=== PATIENT | female | born 1940 | race Caucasian/White ===

== ENCOUNTER 2018-07-27 11:15 | Emergency (ER) | payer MEDICARE ==
[~2018-07-27] VITALS: Ht 157.5 cm; Wt 86.2 kg
[2018-07-27] MEDS ORDERED: GLIM2TAB (12:21)
[2018-07-27] MEDS ORDERED: NAPR-915 (12:21)
[2018-07-27] MEDS ORDERED: AMLO2.5T4 (12:21)
[2018-07-27] MEDS ORDERED: ASPI-999 PO (12:22)
[2018-07-27 12:31] LABS: BACTERIA,URINE FEW /HPF; BILIRUBIN,URINE NEGATIVE (NEGATIVE); CLARITY,URINE CLOUDY; COLOR,URINE YELLOW; GLUCOSE, URINE (UA) 1+ (NEGATIVE); KETONES,URINE NEGATIVE (NEGATIVE); LEUKOCYTE ESTERASE ,URINE 2+ (NEGATIVE); NITRITE,URINE POSITIVE (NEGATIVE); PH,URINE 5.5 (5-9); PROTEIN,URINE 1+ (NEGATIVE); RBC,URINE 0-2 /HPF; UROBILINOGEN,URINE NORMAL (NORMAL); WBC,URINE TNTC /HPF
--- NOTE | 2018-07-27 12:34 | Diagnostic Imaging Report ---
PROCEDURE: CT sinuses without contrast TECHNIQUE: Multiple contiguous axial images were obtained through the sinuses without the use of intravenous contrast. Coronal and sagittal reformations were then performed. Auto Exposure Controls were utilized during the CT exam to meet ALARA standards for radiation dose reduction. INDICATION: Left-sided facial pain, headache FINDINGS: There is some periorbital and preseptal soft tissue swelling bilaterally. The post-septal space normal. The globes normal. The extraocular muscles normal. Frontal sinuses are aplastic. The ethmoid air cells clear. The maxillary sinuses clear. The sphenoid sinuses clear. The partially visualized mastoid air cells clear. Nasal septum and nasal bones unremarkable. Maxillary sinus ostia are widely patent. IMPRESSION: Clear sinuses however the frontals are aplastic. There is some periorbital soft tissue swelling but no post-septal abnormality. No fracture or acute bony pathology. Dictated by: Dictated on workstation # [id number]
[2018-07-27 13:01] LABS: BASOPHILS # (AUTO) 0.1 10^3/uL (0.0-0.1); BASOPHILS % (AUTO) 1 % (0-10); EOSINOPHILS # (AUTO) 0.3 10^3/uL (0.0-0.3); EOSINOPHILS % (AUTO) 2 % (0-10); HEMATOCRIT 44 % (35-52); HEMOGLOBIN 14.5 G/DL (11.5-16.0); LYMPHOCYTES # (AUTO) 1.2 X 10^3 (1.0-4.0); LYMPHOCYTES % (AUTO) 11 % (12-44); MEAN CORPUSCULAR HEMOGLOBIN 27 PG (25-34); MEAN CORPUSCULAR HGB CONC 33 G/DL (32-36); MEAN CORPUSCULAR VOLUME 82 FL (80-99); MEAN PLATELET VOLUME 10.4 FL (7.4-10.4); MONOCYTES # (AUTO) 0.7 X 10^3 (0.0-1.0); MONOCYTES % (AUTO) 7 % (0-12); NEUTROPHILS # (AUTO) 8.4 X 10^3 (1.8-7.8); NEUTROPHILS % (AUTO) 79 % (42-75); PLATELET COUNT 436 10^3/uL (130-400); RED CELL DISTRIBUTION WIDTH 15.7 % (10.0-14.5); WHITE BLOOD COUNT 10.7 10^3/uL (4.3-11.0)
[2018-07-27 13:19] LABS: ALBUMIN 4.1 GM/DL (3.2-4.5); BILIRUBIN,TOTAL 0.5 MG/DL (0.1-1.0); CALCIUM 10.5 MG/DL (8.5-10.1); CREATININE SERUM 0.99 MG/DL (0.60-1.30); MAGNESIUM 1.8 MG/DL (1.8-2.4); POTASSIUM 4.6 MMOL/L (3.6-5.0); TOTAL PROTEIN 7.5 GM/DL (6.4-8.2)
[2018-07-27] MEDS ORDERED: KETOROLAC 15 MG/ML VIAL IVP ONE (13:30)
[2018-07-27] MEDS ORDERED: DEXAMETHASONE 4 MG/ML SDV (DECADRON) IV ONE (13:30)
[2018-07-27] MEDS ORDERED: cefTRIAXone FOR IV USE 1,000 MG in WATER (STERILE) FOR INJECTION 10 ML IV ONE (13:30)
[2018-07-27] MEDS ORDERED: NITR-65 PO (13:35)
--- NOTE | 2018-07-27 13:36 | ED General ---
General Chief Complaint: General Problems/Pain Stated Complaint: HIGH BP, RT SIDE OF BODY IN PAIN Source of Information: Patient, RN Notes Reviewed Exam Limitations: No Limitations History of Present Illness Date Seen by Provider: Jul 27, 2018 Time Seen by Provider: 12:12 Initial Comments Patient presents c/ c/o left side pain and frequent urination since yesterday. Also concerned about her BP being high. Denies any GI symptoms. Not aware of any fever. Timing/Duration: 1 Day Severity: Moderate (8/10) Modifying Factors: worse with Movement; improves with Rest Associated Systoms: Other ((+) urinary frequency) Allergies and Home Medications Allergies Coded Allergies: lisinopril (Unverified Adverse Reaction, Intermediate, Cough, 07/27/18) Cephalosporins (Unverified Adverse Reaction, Mild, Rash, 07/27/18) codeine (Unverified Adverse Reaction, Mild, N/V, 07/27/18) losartan (Unverified Adverse Reaction, Mild, Cough, 07/27/18) Uncoded Allergies: ATORVASTIN (Adverse Reaction, Intermediate, Muscle pain, 07/27/18) CIPROFLOXIN (Adverse Reaction, Mild, N/V, 07/27/18) SULFA (Adverse Reaction, Mild, Rash, 07/27/18) Home Medications Aspirin 81 Mg Tab.chew, 81 MG PO DAILY, (Reported) Nitrofurantoin Monohyd/M-Cryst 100 Mg Capsule, 1 TAB PO BID Prescribed by: ROSALINO NAVA on 07/27/18 1335 Patient Home Medication List Home Medication List Reviewed: Yes Review of Systems Review of Systems Constitutional: see HPI Genitourinary: see HPI, frequency Musculoskeletal: back pain (left neck and flank) All Other Systems Reviewed Negative Unless Noted: Yes (Negative excepted noted.) Physical Exam Vital Signs Vital Signs - First Documented 07/27/18 11:28 Temp 98.2 Pulse 91 Resp 20 B/P (MAP) 166/106 (126) Pulse Ox 95 O2 Delivery Room Air Capillary Refill : Height, Weight, BMI Height: '" Weight: lbs. oz. kg; BMI Method: General Appearance: No Apparent Distress, WD/WN Respiratory: No Respiratory Distress Gastrointestinal: Soft, Tenderness (suprapubic) Rectal: Deferred Back: CVA Tenderness (L) Neurologic/Psychiatric: Alert, Oriented x3, No Motor/Sensory Deficits, Depressed Affect Skin: Warm/Dry Progress/Results/Core Measures Suspected Sepsis SIRS Temperature: Pulse: Respiratory Rate: Laboratory Tests 07/27/18 12:41: White Blood Count 10.7 Blood Pressure / Mean: Laboratory Tests 07/27/18 12:41: Creatinine 0.99, Platelet Count 436H, Total Bilirubin 0.5 Results/Orders Lab Results Laboratory Tests Test 07/27/18 12:13 07/27/18 12:41 Range/Units Urine Color YELLOW Urine Clarity CLOUDY Urine pH 5.5 5-9 Urine Specific [place] 1.010 L 1.016-1.022 Urine Protein 1+ H NEGATIVE Urine Glucose (UA) 1+ H NEGATIVE Urine Ketones NEGATIVE NEGATIVE Urine Nitrite POSITIVE H NEGATIVE Urine Bilirubin NEGATIVE NEGATIVE Urine Urobilinogen NORMAL NORMAL MG/DL Urine Leukocyte Esterase 2+ H NEGATIVE Urine RBC (Auto) TRACE-I NEGATIVE Urine RBC 0-2 /HPF Urine WBC TNTC H /HPF Urine Crystals NONE /LPF Urine Bacteria FEW H /HPF Urine Casts NONE /LPF Urine Mucus NEGATIVE /LPF Urine Culture Indicated YES White Blood Count 10.7 4.3-11.0 10^3/uL Red Blood Count 5.36 4.35-5.85 10^6/uL Hemoglobin 14.5 11.5-16.0 G/DL Hematocrit 44 35-52 % Mean Corpuscular Volume 82 80-99 FL Mean Corpuscular Hemoglobin 27 25-34 PG Mean Corpuscular Hemoglobin Concent 33 32-36 G/DL Red Cell Distribution Width 15.7 H 10.0-14.5 % Platelet Count 436 H 130-400 10^3/uL Mean Platelet Volume 10.4 7.4-10.4 FL Neutrophils (%) (Auto) 79 H 42-75 % Lymphocytes (%) (Auto) 11 L 12-44 % Monocytes (%) (Auto) 7 0-12 % Eosinophils (%) (Auto) 2 0-10 % Basophils (%) (Auto) 1 0-10 % Neutrophils # (Auto) 8.4 H 1.8-7.8 X 10^3 Lymphocytes # (Auto) 1.2 1.0-4.0 X 10^3 Monocytes # (Auto) 0.7 0.0-1.0 X 10^3 Eosinophils # (Auto) 0.3 0.0-0.3 10^3/uL Basophils # (Auto) 0.1 0.0-0.1 10^3/uL Sodium Level 138 135-145 MMOL/L Potassium Level 4.6 3.6-5.0 MMOL/L Chloride Level 99 98-107 MMOL/L Carbon Dioxide Level 30 21-32 MMOL/L Anion Gap 9 5-14 MMOL/L Blood Urea Nitrogen 17 7-18 MG/DL Creatinine 0.99 0.60-1.30 MG/DL Estimat Glomerular Filtration Rate 55 BUN/Creatinine Ratio 17 Glucose Level 214 H 70-105 MG/DL Calcium Level 10.5 H 8.5-10.1 MG/DL Corrected Calcium 10.4 H 8.5-10.1 MG/DL Magnesium Level 1.8 1.8-2.4 MG/DL Total Bilirubin 0.5 0.1-1.0 MG/DL Aspartate Amino Transf (AST/SGOT) 28 5-34 U/L Alanine Aminotransferase (ALT/SGPT) 27 0-55 U/L Alkaline Phosphatase 95 40-136 U/L Total Protein 7.5 6.4-8.2 GM/DL Albumin 4.1 3.2-4.5 GM/DL My Orders Orders - ROSALINO NAVA DO Cbc With Automated Diff (07/27/18 12:14) Comprehensive Metabolic Panel (07/27/18 12:14) Ua Culture If Indicated (07/27/18 12:14) Magnesium (07/27/18 12:14) Ct Sinus Complete Wo (07/27/18 12:15) Urine Culture (07/27/18 12:13) Dexamethasone Injection (Decadron Inject (07/27/18 13:30) Ketorolac Injection (Toradol Injection) (07/27/18 13:30) Nitrofurantoin Capsule,Macro (Macrobid C (07/27/18 13:45) Ketorolac Injection (Toradol Injection) (07/27/18 13:43) Dexamethasone Injection (Decadron Inject (07/27/18 13:44) Nitrofurantoin Capsule,Macro (Macrobid C (07/27/18 13:43) Medications Given in ED Vital Signs/I&O Capillary Refill : Diagnostic Imaging Diagonstic Imaging: CT Plain Films/CT/US/NM/MRI: other (sinus is unremarkable) Departure Impression Primary Impression: Urinary tract infection Disposition: 01 HOME, SELF-CARE Condition: Stable Departure-Patient Inst. Decision time for Depature: 13:34 Referrals: SELF,SHELLEY FRANCIS (PCP/Family) Primary Care Physician Patient Instructions: Urinary Tract Infection, Adult (DC) Add. Discharge Instructions: All discharge instructions reviewed with patient and/or family. Voiced understanding. BASED ON YOUR LAB WORK TODAY, YOU CAN TAKE NAPROXEN NEEDED FOR YOUR PAIN. Scripts Nitrofurantoin Monohyd/M-Cryst (Macrobid 100 mg Capsule) 100 Mg Capsule 1 TAB PO BID for UTI, #20 CAP 0 Refills Prov: ROSALINO NAVA DO 07/27/18 ROSALINO NAVA DO Jul 27, 2018 13:36
[2018-07-27] MEDS ORDERED: NITROFURANTOIN 100 MG (MACROBID) CAPSULE PO ONE ×2 (13:43→13:45)
[2018-07-27] MEDS ORDERED: KETOROLAC 30 MG/ML VIAL ONE (13:43)
[2018-07-27] MEDS ORDERED: DEXAMETHASONE 10 MG/ML (DECADRON) 1 ML VIAL ONE (13:44)
[2018-07-27 14:00] VITALS: BP 180/87
== END 2018-07-27 14:00 | disposition home or self-care (01) ==
LOC: ER FS 11:18
DX: N39.0 Urinary tract infection, site not specified (principal); Z88.5 Allergy status to narcotic agent; Z88.1 Allergy status to other antibiotic agents; Z88.8 Allergy status to other drugs, medicaments and biological substances; Z88.2 Allergy status to sulfonamides; Z79.82 Long term (current) use of aspirin
CPT/HCPCS: 36415; 70486; 80053; 81000; 83735; 85025; 87088; 87186

== ENCOUNTER → 2018-08-08 | Outpatient (CLI) | payer MEDICARE ==
[~2018-08-08] MED LIST: AMLO2.5T4; ASPI-999 PO; GLIM2TAB; NAPR-915; NITR-65 PO
--- NOTE | 2018-08-08 11:43 | Diagnostic Imaging Report ---
INDICATION: Urinary tract infection, abdominal pain INDICATION: 2 views of the abdomen demonstrate a nondistended bowel gas pattern. There is a round calcification left upper quadrant measuring approximately 10 mm. This is likely related to the splenic artery. Cholecystectomy clips are present. There are phleboliths within the pelvis. There are no obvious renal calculi. Mild to moderate degenerative change seen throughout lumbar spine. IMPRESSION: 1. Nondistended bowel gas pattern. 2. No obvious renal calculi. Dictated by: Dictated on workstation # [id number]
== END ==
LOC: RAD FS 11:05
PROVIDERS: ATTEND Urology
DX: N39.0 Urinary tract infection, site not specified (principal); Z90.49 Acquired absence of other specified parts of digestive tract
CPT/HCPCS: 74018

== ENCOUNTER → 2020-08-17 | Outpatient (CLI) | payer MEDICARE ==
[~2020-08-17] MED LIST changes: -GLIM2TAB; +GLIM2TAB4
--- NOTE | 2020-08-17 13:13 | Diagnostic Imaging Report ---
EXAMINATION: CT head without contrast. TECHNIQUE: Multiple contiguous axial images were obtained through the brain without the use of intravenous contrast. All CT scans use one or more of the following dose optimizing techniques: automated exposure control, MA and/or KvP adjustment based on patient size and exam type or iterative reconstruction. HISTORY: Fall. Vision changes. Scalp contusion. COMPARISON: 07/27/2018. FINDINGS: No large acute territorial ischemia, mass, or hemorrhage. No midline shift or mass effect. Decreased attenuation is seen in the periventricular and subcortical white matter. The ventricles and cortical sulci are prominent. The basilar cisterns are patent and unremarkable. The orbits are normal. Paranasal sinuses are normal. Mastoid air cells are clear. No soft tissue abnormality is seen. No osseus lesions or fractures are seen. IMPRESSION: 1. No large acute territorial ischemia, mass, or hemorrhage. 2. Age-indeterminate microvascular disease. If indicated recommend MRI brain to further evaluate. 3. Generalized parenchymal volume loss. Dictated by: Dictated on workstation # [id number]
== END ==
LOC: RAD FS 12:42
PROVIDERS: ATTEND Family Medicine
DX: S00.03XA Contusion of scalp, initial encounter (principal); G31.9 Degenerative disease of nervous system, unspecified; H53.9 Unspecified visual disturbance; W19.XXXA Unspecified fall, initial encounter
CPT/HCPCS: 70450

== ENCOUNTER 2020-09-16 03:19 | Emergency (ER) | payer MEDICARE ==
[~2020-09-16] VITALS: Ht 157.4 cm; Wt 67.1 kg
--- NOTE | 2020-09-16 03:25 | ED Fall/Injury ---
General Stated Complaint: FALL/BACK PAIN History of Present Illness Date Seen by Provider: Sep 16, 2020 Time Seen by Provider: 03:25 Initial Comments 80-year-old female brought in by EMS following a fall. Patient reports that she fell around 1030 last night. That she crawled into the bedroom to the phone and called 911. She reports that she was unable to get up on her own. However when she was up with EMS assist she ambulated with her walker to the ambulance. She complains of diffuse bilateral lower lumbar pain, no point tenderness. She also reports that the back of her head hurts where she hit her head when she fell. She reports that she been having frequent falls because her knee gives out on her. She has been seeing her primary care provider regarding this. She did not lose consciousness. She denies shortness of breath chest pain or other systemic complaints. Allergies and Home Medications Allergies Coded Allergies: lisinopril (Unverified Adverse Reaction, Intermediate, Cough, 07/27/18) Cephalosporins (Unverified Adverse Reaction, Mild, Rash, 07/27/18) codeine (Unverified Adverse Reaction, Mild, N/V, 07/27/18) losartan (Unverified Adverse Reaction, Mild, Cough, 07/27/18) Uncoded Allergies: ATORVASTIN (Adverse Reaction, Intermediate, Muscle pain, 07/27/18) CIPROFLOXIN (Adverse Reaction, Mild, N/V, 07/27/18) SULFA (Adverse Reaction, Mild, Rash, 07/27/18) Home Medications Aspirin 81 Mg Tab.chew, 81 MG PO DAILY, (Reported) Nitrofurantoin Monohyd/M-Cryst 100 Mg Capsule, 1 TAB PO BID Prescribed by: ROSALINO NAVA on 07/27/18 1335 Patient Home Medication List Home Medication List Reviewed: Yes Review of Systems Review of Systems Constitutional: No chills, No fever Eyes: No Symptoms Reported Ears, Nose, Mouth, Throat: no symptoms reported Respiratory: no symptoms reported Cardiovascular: no symptoms reported Gastrointestinal: no symptoms reported Genitourinary: no symptoms reported Musculoskeletal: see HPI Skin: see HPI Past Bgyjqii-Ktimnm-Iefwuy Hx Past Med/Social Hx: Reviewed Nursing Past Med/Soc Hx Patient Social History Recent Hopitalizations: No Immunizations Up To Date Date of Influenza Vaccine: Dec 30, 2018 Seasonal Allergies Seasonal Allergies: No Past Medical History Gallbladder, Hysterectomy Respiratory: Yes Pulmonary Embolism Cardiac: Yes High Cholesterol, Hypertension, Palpitations Neurological: Yes (NOV 2016: RESIDUAL R SIDE WEAKNESS AND MEMORY ISSUES) Stroke Genitourinary: Yes (ACUTE CYSTITIS HX) UTI-Chronic Gastrointestinal: No Musculoskeletal: Yes (BURSITIS BOTH KNEES) Arthritis Endocrine: Yes (DM TYPE II) Diabetes, Non-Insulin dep HEENT: No Cancer: No Psychosocial: No Integumentary: No Blood Disorders: No Physical Exam Vital Signs Vital Signs - First Documented 09/16/20 03:19 Temp 37.0 Pulse 71 Resp 18 B/P (MAP) 158/94 (115) Pulse Ox 97 O2 Delivery Room Air Capillary Refill : Height, Weight, BMI Height: 5'2.00" Weight: 190lbs. oz. 86.815101su; BMI Method:Stated General Appearance: no apparent distress HEENT: PERRL/EOMI Neck: full range of motion, supple Cardiovascular: normal peripheral pulses Respiratory: lungs clear, normal breath sounds Gastrointestinal: non tender, soft Back: no vertebral tenderness, other (No point tenderness) Extremities: non-tender Neurologic/Psychiatric: alert, normal mood/affect Skin: normal color, warm/dry, other (Small contusion/bump posterior scalp) Progress/Results/Core Measures Results/Orders My Orders Orders - VIVIAN CHUN DO Lumbar Spine 2 Or 3 View (09/16/20 03:25) Ct Head Wo (09/16/20 03:25) Ketorolac Injection (Toradol Injection) (09/16/20 03:54) Vital Signs/I&O 09/16/20 03:19 Temp 37.0 Pulse 71 Resp 18 B/P (MAP) 158/94 (115) Pulse Ox 97 O2 Delivery Room Air Progress Progress Note : Progress Note Patient's head CT shows no acute intercranial abnormality. Patient with no vertebral or point tenderness on exam. No obvious acute fracture lumbar x-ray. Patient stable and discharged home Diagnostic Imaging Diagonstic Imaging: CT Plain Films/CT/US/NM/MRI: head Comments No acute findings, similar to previous CT about a month ago Reviewed: Reviewed [facility] Study Diagonstic Imaging: Xray Plain Films/CT/US/NM/MRI: other (Lumbar spine) Comments No acute fracture noted Departure Impression Primary Impression: Fall Qualified Codes: W19.XXXA - Unspecified fall, initial encounter Additional Impressions: Contusion of scalp Qualified Codes: S00.03XA - Contusion of scalp, initial encounter Lumbar contusion Qualified Codes: S30.0XXA - Contusion of lower back and pelvis, initial encounter Lumbar back sprain Qualified Codes: S33.5XXA - Sprain of ligaments of lumbar spine, initial encounter Disposition: 01 HOME, SELF-CARE Condition: Stable Departure-Patient Inst. Referrals: SELF,SHELLEY FRANCIS (PCP/Family) Primary Care Physician Patient Instructions: Minor Contusion ED, Minor Head Injury, Adult ED Add. Discharge Instructions: Follow-up with your primary care provider for continuation of care and recheck of today's symptoms VIVIAN CHUN DO Sep 16, 2020 03:25
[2020-09-16] MEDS ORDERED: KETOROLAC 30 MG/ML VIAL IM STA (03:54)
[2020-09-16 04:24] VITALS: BP 172/86
--- NOTE | 2020-09-16 05:35 | Diagnostic Imaging Report ---
INDICATION: Fall. Back pain. COMPARISON: None FINDINGS: Frontal and lateral views of the lumbar spine were obtained. Alignment and vertebral heights are maintained. There is no fracture or destructive process. Moderate multilevel degenerative disease is noted in the lumbar spine. Limited views of the abdomen demonstrate nonobstructive bowel gas pattern. IMPRESSION: 1. No acute fracture or dislocation of the lumbar spine. 2. Moderate multilevel degenerative changes. Dictated by: Dictated on workstation # [id number]
--- NOTE | 2020-09-16 06:18 | Diagnostic Imaging Report ---
INDICATION: Fall. Pain in the back of the head. TECHNIQUE: Routine non contrast-enhanced axial images were obtained from the skull base to the vertex. Auto Exposure Controls were utilized during the CT exam to meet ALARA standards for radiation dose reduction COMPARISON: 08/17/2020 FINDINGS: The ventricles and cortical sulci are diffusely prominent, compatible with age-related volume loss. There are confluent areas of abnormal, low attenuation in the periventricular white matter. This is consistent with chronic small vessel ischemic changes. There is no midline shift or mass-effect. No acute intra-axial hemorrhage is seen. There are no abnormal areas of increased or decreased density to suggest acute hemorrhage or edema. No extra-axial masses or collections are present. The bony calvarium is intact. The visualized paranasal sinuses are unremarkable. The mastoid air cells are clear. IMPRESSION: 1. No acute intracranial abnormality. No CT evidence of mass, acute infarct or intracranial hemorrhage. 2. Chronic small vessel ischemic changes in the deep white matter. Dictated by: Dictated on workstation # [id number]
== END 2020-09-16 04:24 | disposition home or self-care (01) ==
LOC: ER FS 03:22
DX: S33.5XXA Sprain of ligaments of lumbar spine, initial encounter (principal); S00.03XA Contusion of scalp, initial encounter; I10 Essential (primary) hypertension; E11.9 Type 2 diabetes mellitus without complications; Z86.73 Personal history of transient ischemic attack (TIA), and cerebral infarction without residual deficits; Z79.82 Long term (current) use of aspirin; W22.8XXA Striking against or struck by other objects, initial encounter
CPT/HCPCS: 70450; 72100

== ENCOUNTER → 2020-12-01 | Outpatient (CLI) | payer MEDICARE ==
--- NOTE | 2020-12-01 16:14 | Diagnostic Imaging Report ---
INDICATION: Primary osteoarthritis of the knees AP, oblique and lateral views of both knees are obtained. No acute fracture or malalignment is identified. There is mild narrowing of the medial knee joint compartments with mild medial marginal spurring, bilaterally. There is also mild suprapatellar spurring which is greater on the right. No definite joint fluid is identified. There are atherosclerotic calcifications. No fracture, malalignment or bone destruction is identified. IMPRESSION: Mild osteoarthritic which is most pronounced in the medial compartments of the knee with mild involvement of the patellofemoral joints, greater on the right. Dictated by: Dictated on workstation # [id number]
== END ==
LOC: RAD 13:53
PROVIDERS: ATTEND Family Medicine
DX: M17.0 Bilateral primary osteoarthritis of knee (principal)

== ENCOUNTER 2022-06-01 14:14 | Observation (INO) | payer MEDICARE ==
[~2022-06-01] VITALS: Ht 157 cm; Wt 60.0 kg
--- NOTE | 2022-06-01 14:36 | ED Chest Pain ---
General Chief Complaint: Chest Pain Stated Complaint: CHEST PAINS Source: patient, EMS Exam Limitations: no limitations (DINO CONNELLY) History of Present Illness Date Seen by Provider: Jun 01, 2022 Time Seen by Provider: 14:33 Initial Comments Patient is a 81-year-old female with a history of stroke, , neuropathy, GERD who presents the ED with chest heaviness and pain. This started around 1 PM. She states she was at lunch eating at [employer]. She started having chest heaviness and went to her room. She started having difficulty breathing. The staff there gave her Tums without much improvement. She states she felt nauseous at the time without vomiting. she states she has had similar pain in the past. She states the pain is 5 out of 10 t this time. She reports mild cough over the past 2 weeks with clear sputum production. She reports intermittent upper abdominal pain for several years. She reports pain in her knees and feet secondary to neuropathy describes as pins and needle sensation. She does use a walker to typically ambulate at home. She denies history of coronary artery disease, CHF, COPD. Denies any fever, chills, bodyaches, headache, dizziness diarrhea, unilateral muscle weakness or sensory changes, dysuria. No known history of hypertension, high cholesterol or smoking. Family cardiac history. Patient was given a full aspirin by EMS. (DINO CONNELLY) Allergies and Home Medications Allergies Coded Allergies: lisinopril (Unverified Adverse Reaction, Intermediate, Cough, 07/27/18) Cephalosporins (Unverified Adverse Reaction, Mild, Rash, 07/27/18) codeine (Unverified Adverse Reaction, Mild, N/V, 07/27/18) losartan (Unverified Adverse Reaction, Mild, Cough, 07/27/18) Uncoded Allergies: ATORVASTIN (Adverse Reaction, Intermediate, Muscle pain, 07/27/18) CIPROFLOXIN (Adverse Reaction, Mild, N/V, 07/27/18) SULFA (Adverse Reaction, Mild, Rash, 07/27/18) Patient Home Medication List Home Medication List Reviewed: Yes (DINO CONNELLY) Acetaminophen (Tylenol) 325 Mg Capsule, 1,000 MG PO DAILY, (Reported) Entered as Reported by: CHAYA RICHARDS on 3/4/717 Last Action: New Order Aspirin (Aspirin) 81 Mg Tab.chew, 81 MG PO DAILY, (Reported) Entered as Reported by: RABIA LIMA on 07/27/18 1222 Last Action: Reviewed Cholecalciferol (Vitamin D3) (Vitamin D3) 50 Mcg (2000 Unit) Tablet, 50 MCG PO D AILJuan, (Reported) Entered as Reported by: CHAYA RICHARDS on 06/02/22717 Last Action: New Order Cyanocobalamin (Vitamin B-12) (Vitamin B12) 2,500 Mcg Tab.chew, 1,000 MCG PO DAILY, (Reported) Entered as Reported by: CHAYA RICHARDS on 06/02/22717 Last Action: New Order Loratadine (Loratadine) 10 Mg Tablet, 10 MG PO DAILY, (Reported) Entered as Reported by: CHAYA RICHARDS on 06/02/22717 Last Action: New Order Houstonia-3 Fatty Acids/Fish Oil (Fish Oil Conc 1,000 mg Softgel) 300 Mg-1,000 Mg Capsule, 1 EACH PO DAILY, (Reported) Entered as Reported by: CHAYA RICHARDS on 06/02/22717 Last Action: New Order Pantoprazole Sodium (Pantoprazole Sodium) 40 Mg Tablet.dr, 40 MG PO DAILY, (Reported) Entered as Reported by: CHAYA RICHARDS on 06/02/22717 Last Action: New Order Psyllium Husk (Metamucil) 3.4 Gram/5.4 Gram Powder, 660 GM PO, (Reported) Entered as Reported by: CHAYA RICHARDS on 06/02/22717 Last Action: New Order Sertraline HCl (Sertraline HCl) 100 Mg Tablet, 100 MG PO DAILY, (Reported) Entered as Reported by: CHAYA RICHARDS on 06/02/22717 Last Action: New Order Trimethoprim (Trimethoprim) 100 Mg Tablet, 100 MG PO DAILY, (Reported) Entered as Reported by: CHAYA RICHARDS on 06/02/22717 Last Action: New Order Discontinued Medications Amlodipine Besylate (Amlodipine Besylate) 2.5 Mg Tablet, (Reported) Discontinued Reason: No Longer Taking Entered as Reported by: RABIA LIMA on 07/27/18 1221 Last Action: Discontinued Review of Systems Review of Systems Constitutional: No chills, No diaphoresis, No malaise, No weakness EENTM: No Blurred Vision, No Eye Pain Respiratory: Cough; Denies Orthopnea; Shortness of Air; Denies SOA at Rest Cardiovascular: Chest Pain Gastrointestinal: Abdominal Pain; Denies Diarrhea; Nausea; Denies Vomiting Musculoskeletal: No back pain, No joint pain, No joint swelling; muscle pain Skin: No change in color, No change in hair/nails Psychiatric/Neurological: Numbness Endocrine: Denies Excessive Sweating, Denies Flushing (DINO CONNELLY) All Other Systems Reviewed Negative Unless Noted: Yes (DINO CONNELLY) Past Ehszrlt-Dfkbzv-Eugugu Hx Seasonal Allergies Seasonal Allergies: No (DINO CONNELLY) Past Medical History Surgeries: Yes Gallbladder, Hysterectomy Respiratory: Yes Pulmonary Embolism Cardiac: Yes High Cholesterol, Hypertension, Palpitations Neurological: Yes (NOV 2016: RESIDUAL R SIDE WEAKNESS AND MEMORY ISSUES) Stroke Genitourinary: Yes (ACUTE CYSTITIS HX) UTI-Chronic Gastrointestinal: No Musculoskeletal: Yes (BURSITIS BOTH KNEES) Arthritis Endocrine: Yes (DM TYPE II) Diabetes, Non-Insulin dep HEENT: No Cancer: No Psychosocial: No Integumentary: No Blood Disorders: No (DINO CONNELLY) Physical Exam Vital Signs Vital Signs - First Documented 06/01/22 14:19 Temp 37.0 Pulse 68 Resp 16 B/P (MAP) 180/69 (106) Pulse Ox 99 (JAY FANG MD) Vital Signs Capillary Refill : (DINO CONNELLY) Height, Weight, BMI Height: 5'2.00" Weight: 190lbs. oz. [id number]; 27.00 BMI Method:Stated General Appearance: No Apparent Distress, WD/WN HEENT: PERRL/EOMI, TMs Normal, Normal ENT Inspection Neck: Full Range of Motion, Normal Inspection, Non Tender, Supple Respiratory: Chest Non Tender, Lungs Clear, Normal Breath Sounds, No Accessory Muscle Use, No Respiratory Distress Cardiovascular: Regular Rate, Rhythm, No Edema, No Gallop, No JVD, No Murmur Gastrointestinal: Normal Bowel Sounds, No Organomegaly, No Pulsatile Mass Extremity: Normal Capillary Refill, Normal Inspection, Normal Range of Motion Neurologic/Psychiatric: Alert, Oriented x3, No Motor/Sensory Deficits, Normal 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, 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 Norm as Tested Skin: Normal Color, Warm/Dry (DINO CONNELLY) Progress/Results/Core Measures Results/Orders Lab Results Laboratory Tests Test 06/01/22 14:26 06/01/22 17:23 Range/Units White Blood Count 4.7 4.3-11.0 10^3/uL Red Blood Count 4.54 3.80-5.11 10^6/uL Hemoglobin 9.5 L 11.5-16.0 g/dL Hematocrit 30 L 35-52 % Mean Corpuscular Volume 65 L 80-99 fL Mean Corpuscular Hemoglobin 21 L 25-34 pg Mean Corpuscular Hemoglobin Concent 32 32-36 g/dL Red Cell Distribution Width 15.8 H 10.0-14.5 % Platelet Count 532 H 130-400 10^3/uL Mean Platelet Volume 9.6 9.0-12.2 fL Immature Granulocyte % (Auto) 0 % Neutrophils (%) (Auto) 65 42-75 % Lymphocytes (%) (Auto) 22 12-44 % Monocytes (%) (Auto) 7 0-12 % Eosinophils (%) (Auto) 4 0-10 % Basophils (%) (Auto) 2 0-10 % Neutrophils # (Auto) 3.1 1.8-7.8 10^3/uL Lymphocytes # (Auto) 1.0 1.0-4.0 10^3/uL Monocytes # (Auto) 0.3 0.0-1.0 10^3/uL Eosinophils # (Auto) 0.2 0.0-0.3 10^3/uL Basophils # (Auto) 0.1 0.0-0.1 10^3/uL Immature Granulocyte # (Auto) 0.0 0.0-0.1 10^3/uL Prothrombin Time 13.5 12.2-14.7 SEC INR Comment 1.0 0.8-1.4 Activated Partial Thromboplast Time 24 24-35 SEC Sodium Level 139 135-145 MMOL/L Potassium Level 4.2 3.6-5.0 MMOL/L Chloride Level 108 H 98-107 MMOL/L Carbon Dioxide Level 22 21-32 MMOL/L Anion Gap 9 5-14 MMOL/L Blood Urea Nitrogen 19 H 7-18 MG/DL Creatinine 1.35 H 0.60-1.30 MG/DL Estimat Glomerular Filtration Rate 40 BUN/Creatinine Ratio 14 Glucose Level 116 H 70-105 MG/DL Calcium Level 10.2 H 8.5-10.1 MG/DL Corrected Calcium 10.3 H 8.5-10.1 MG/DL Magnesium Level 2.1 1.6-2.4 MG/DL Total Bilirubin 0.3 0.1-1.0 MG/DL Aspartate Amino Transf (AST/SGOT) 31 5-34 U/L Alanine Aminotransferase (ALT/SGPT) 14 0-55 U/L Alkaline Phosphatase 80 40-136 U/L Myoglobin 49.0 10.0-92.0 NG/ML Troponin I < 0.028 < 0.028 <0.028 NG/ML B-Type Natriuretic Peptide 265.7 H <100.0 PG/ML Total Protein 6.4 6.4-8.2 GM/DL Albumin 3.9 3.2-4.5 GM/DL Lipase 30 8-78 U/L (JAY FANG MD) My Orders Orders - JAY FANG MD Ekg Tracing (06/01/22 14:20) (JAY FANG MD) Medications Given in ED Current Medications Medications Dose Ordered Sig/Sindhu Route Start Time Stop Time Status Last Admin Dose Admin Enoxaparin Sodium 60 mg ONCE ONCE SC 06/01/22 17:00 06/01/22 17:01 DC 06/01/22 17:04 60 MG Hydralazine HCl 10 mg ONCE ONCE IV 06/01/22 17:00 06/01/22 17:01 DC 06/01/22 17:04 10 MG Metoprolol Tartrate 5 mg ONCE ONCE IV 06/01/22 16:30 06/01/22 16:31 DC 06/01/22 16:45 3 MG Nitroglycerin 0.4 mg UD PRN SL 06/01/22 14:45 06/01/22 14:41 0.4 MG (JAY FANG MD) Vital Signs/I&O 06/01/22 06/01/22 14:19 17:15 Temp 37.0 Pulse 68 76 Resp 16 16 B/P (MAP) 180/69 (106) 179/89 Pulse Ox 99 98 (JAY FANG MD) Comment Sinus rhythm, ventricular premature complexes, 67 bpm, QRS duration 86 MS, QTc 415 MS, Second EKG at 1716 shows sinus rhythm with ventricular bigeminy, pericardial leads low voltage. 82 bpm, QRS duration 86 MS, QTc 475 MS. (DINO CONNELLY) Departure Communication (Admissions) Time/Spoke to Admitting Phy: 16:[address] Jewell. Recommends 5 mg Lopressor, Lovenox, baby aspirin, n.p.o. after midnight, serial troponin (DINO CONNELLY) Communication (PCP) Reviewed outpatient medications, previous ER visits, testing. Does not appear to have any previous cardiac work-up. Patient presents ED with left-sided chest pain after eating. She took Tums at [facility] without much improvement. Associate shortness of breath. On arrival EKG without evidence of ST elevation or depression, A-fib or a flutter. She was given a full aspirin by EMS. Patient on arrival rates pain 5 out of 10. Was given sublingual nitro with improvement of her chest pressure and pain. She was hypertensive and did note some improvements after the sublingual nitro. She started to increase in her blood pressure and was given a dose of Lopressor. After giving about 3 mg of the Lopressor as patient's cardiac rhythm changed and became bradycardic. Lopressor was stopped. Her heart rate did increase but had a rhythm of sinus rhythm with ventricular bigeminy. She did not have any chest pain at this time. She was given hydralazine due to the heart rate in the 60s. Improvement of her blood pressure. Patient was discussed with cardiology Dr. Jewell who recommended Lopressor, Lovenox, baby aspirin and n.p.o. after midnight with serial troponins. This was discussed with the hospitalist Dr. Pratt who accepts patient for cardiac evaluation. Due to her age, moderate heart score patient will be admitted for serial troponins and cardiac work-up. Patient was discussed with OA daughter Kori who agrees. She states that patient has a tendency of seeking attention especially at her facility at [facility]. She does not like sitting at the table and eating at certain times. This was about the time where she started having the chest pain. Due to her complaint, EKG changes, patient will be admitted for further cardiac work-up (DINO CONNELLY) Impression Primary Impression: Chest pain Disposition: ADMITTED INPATIENT Condition: Stable Admissions Decision to Admit Reason: Admit from ER (General) Decision to Admit/Date: Jun 01, 2022 Time/Decision to Admit Time: 16:25 (DINO CONNELLY) Departure-Patient Inst. Referrals: SHELLEY BOURGEOIS MD (PCP/Family) Primary Care Physician ATTENDING PHYSICIAN NOTE: I was physically present as attending physician in the emergency department during the care of this patient, but I was not directly involved in the decision making or delivery of care for this patient. (JAY FANG MD) DINO CONNELLY Jun 01, 2022 14:36 JAY FANG MD Jun 01, 2022 19:55
[2022-06-01 14:38] LABS: BASOPHILS # (AUTO) 0.1 10^3/uL (0.0-0.1); BASOPHILS % (AUTO) 2 % (0-10); EOSINOPHILS # (AUTO) 0.2 10^3/uL (0.0-0.3); EOSINOPHILS % (AUTO) 4 % (0-10); HEMATOCRIT 30 % (35-52); HEMOGLOBIN 9.5 g/dL (11.5-16.0); LYMPHOCYTES % (AUTO) 22 % (12-44); MEAN CORPUSCULAR HEMOGLOBIN 21 pg (25-34); MEAN CORPUSCULAR HGB CONC 32 g/dL (32-36); MEAN CORPUSCULAR VOLUME 65 fL (80-99); MEAN PLATELET VOLUME 9.6 fL (9.0-12.2); MONOCYTES # (AUTO) 0.3 10^3/uL (0.0-1.0); MONOCYTES % (AUTO) 7 % (0-12); NEUTROPHILS # (AUTO) 3.1 10^3/uL (1.8-7.8); NEUTROPHILS % (AUTO) 65 % (42-75); PLATELET COUNT 532 10^3/uL (130-400); WHITE BLOOD COUNT 4.7 10^3/uL (4.3-11.0)
[2022-06-01 14:42] LABS: ALBUMIN 3.9 GM/DL (3.2-4.5); POTASSIUM 4.2 MMOL/L (3.6-5.0)
[2022-06-01 14:44] LABS: CALCIUM 10.2 MG/DL (8.5-10.1)
[2022-06-01 14:45] LABS: TOTAL PROTEIN 6.4 GM/DL (6.4-8.2)
[2022-06-01] MEDS ORDERED: NITROGLYCERIN 0.4 MG SL TABS BTL 25'S SL PRN ×2 (14:45→18:00)
[2022-06-01 14:47] LABS: BILIRUBIN,TOTAL 0.3 MG/DL (0.1-1.0)
[2022-06-01 14:48] LABS: CREATININE SERUM 1.35 MG/DL (0.60-1.30)
[2022-06-01 14:51] LABS: MAGNESIUM 2.1 MG/DL (1.6-2.4)
[2022-06-01 14:52] LABS: PROTHROMBIN TIME PATIENT 13.5 SEC (12.2-14.7)
--- NOTE | 2022-06-01 14:55 | Diagnostic Imaging Report ---
INDICATION: Chest pain. TIME OF EXAM: 2:44 p.m. No prior studies are available for comparison. FINDINGS: The heart size is normal. Lungs are clear. No infiltrates are seen. There is no effusion or pneumothorax. IMPRESSION: No acute cardiopulmonary process is detected. Dictated by: Dictated on workstation # [id number]
[2022-06-01] MEDS ORDERED: NS IV 500 ML 500 ML IV STA (16:02)
[2022-06-01] MEDS ORDERED: NS IV 500 ML 500 ML ONE (16:09)
[2022-06-01] MEDS ORDERED: ENOXAPARIN 60 MG/0.6 ML (LOVENOX) SYR SC ONE ×2 (16:30→17:00)
[2022-06-01] MEDS: meTOprolol 5 MG/5 ML (LOPRESSOR) VIAL IV ONE ×2 (16:38→16:45)
[2022-06-01] MEDS ORDERED: hydrALAZINE (APESOLINE) 20 MG/ML VIAL IV ONE (17:00)
[2022-06-01] MEDS ORDERED: MELATONIN 3 MG TABLET PO PRN (18:00)
[2022-06-01] MEDS ORDERED: MILK OF MAGNESIA 400 MG/5 ML 30 ML UDC PO PRN (18:00)
[2022-06-01] MEDS ORDERED: ONDANSETRON 4 MG (ZOFRAN) ORAL DISSOLVE TAB PO PRN (18:00)
[2022-06-01] MEDS ORDERED: polyethylene glycoL POWDER 17 GM (MIRALAX) PACK PO PRN (18:00)
[2022-06-01] MEDS ORDERED: BISACODYL 10 MG SUPP (DULCOLAX) PR PRN (18:00)
[2022-06-01] MEDS ORDERED: diphenhydrAMINE 50 MG/ML INJ (BENADRYL) IVP PRN (18:00)
[2022-06-01] MEDS ORDERED: ANTACID SUSP 30 ML UDC (MYLANTA) PO PRN (18:00)
[2022-06-01] MEDS ORDERED: ACETAMINOPHEN 325 MG TABLET PO PRN (18:00)
[2022-06-01] MEDS ORDERED: LACTULOSE SYRUP 10GM/15ML (ENULOSE) 30ML UDC PO PRN (18:00)
[2022-06-01] MEDS ORDERED: CALCIUM CARBONATE 500 MG (TUMS) TAB.CHEW PO PRN (18:00)
[2022-06-01] MEDS ORDERED: PATIENT MAY USE OWN MEDS, ALL PO SCH (18:00)
[2022-06-01] MEDS ORDERED: ALPRAZolam 0.5 MG (XANAX) TAB PO PRN (18:00)
[2022-06-01] MEDS ORDERED: ENOXAPARIN 100 MG/1 ML (LOVENOX) SYR SC SCH (18:00)
[2022-06-01] MEDS ORDERED: HYDROmorphone 2 MG/ML VIAL (DILAUDID) IV PRN (18:00)
[2022-06-01] MEDS ORDERED: ONDANSETRON 4 MG/2 ML (SDV) Z0FRAN IV PRN (18:00)
[2022-06-01] MEDS ORDERED: diphenhydrAMINE 25 MG TAB (BENADRYL) PO PRN (18:00)
[2022-06-01] MEDS ORDERED: cloNIDine 0.1 MG (CATAPRES) TAB PO PRN (18:00)
[2022-06-01 18:04] VITALS: BP 168/83
[2022-06-01] MEDS ORDERED: ENOXAPARIN 60 MG/0.6 ML (LOVENOX) SYR SC SCH (18:30)
[2022-06-01 20:00] VITALS: BP 138/78
[2022-06-01] MEDS: meTOprolol TARTRATE 25 MG (LOPRESSOR) TABLET PO SCH (20:14)
[2022-06-01] MEDS: SENNOSIDES 8.6 MG (SENOKOT) TAB PO SCH (20:14)
[2022-06-01] MEDS: DOCUSATE SODIUM 100 MG (COLACE) CAP PO SCH (20:14)
[2022-06-02] VITALS: BP 125/73
[2022-06-02 04:00] VITALS: BP 140/49
[2022-06-02 04:44] LABS: BASOPHILS # (AUTO) 0.1 10^3/uL (0.0-0.1); BASOPHILS % (AUTO) 2 % (0-10); EOSINOPHILS # (AUTO) 0.2 10^3/uL (0.0-0.3); EOSINOPHILS % (AUTO) 5 % (0-10); HEMATOCRIT 26 % (35-52); HEMOGLOBIN 8.3 g/dL (11.5-16.0); LYMPHOCYTES # (AUTO) 1.6 10^3/uL (1.0-4.0); LYMPHOCYTES % (AUTO) 34 % (12-44); MEAN CORPUSCULAR HEMOGLOBIN 21 pg (25-34); MEAN CORPUSCULAR HGB CONC 32 g/dL (32-36); MEAN CORPUSCULAR VOLUME 65 fL (80-99); MEAN PLATELET VOLUME 10.3 fL (9.0-12.2); MONOCYTES # (AUTO) 0.4 10^3/uL (0.0-1.0); MONOCYTES % (AUTO) 9 % (0-12); NEUTROPHILS # (AUTO) 2.5 10^3/uL (1.8-7.8); NEUTROPHILS % (AUTO) 51 % (42-75); PLATELET COUNT 498 10^3/uL (130-400); WHITE BLOOD COUNT 4.8 10^3/uL (4.3-11.0)
[2022-06-02 05:08] LABS: ALANINE AMINOTRANSFERASE 11 U/L (0-55); ALBUMIN 3.4 GM/DL (3.2-4.5); ALKALINE PHOSPHATASE 67 U/L (40-136); BILIRUBIN,TOTAL 0.3 MG/DL (0.1-1.0); BUN/CREATININE RATIO 16; CALCIUM 10.9 MG/DL (8.5-10.1); CARBON DIOXIDE 21 MMOL/L (21-32); CHLORIDE 110 MMOL/L (98-107); CHOLESTEROL 235 MG/DL (< 200); CREATININE SERUM 1.28 MG/DL (0.60-1.30); GFR ESTIMATED 43; GLUCOSE 100 MG/DL (70-105); HDL CHOLESTEROL 48 MG/DL (40-60); POTASSIUM 3.8 MMOL/L (3.6-5.0); SODIUM 140 MMOL/L (135-145); TOTAL PROTEIN 5.9 GM/DL (6.4-8.2); TRIGLYCERIDES 157 MG/DL (<150); VLDL CHOLESTEROL 31 MG/DL (5-40)
[2022-06-02] MEDS ORDERED: ACET325C7 PO (07:18)
[2022-06-02] MEDS ORDERED: PSYL660P17 PO (07:18)
[2022-06-02] MEDS ORDERED: PANT40TA52 PO (07:18)
[2022-06-02] MEDS ORDERED: CHOL200025 PO (07:18)
[2022-06-02] MEDS ORDERED: TRIM100T PO (07:18)
[2022-06-02] MEDS ORDERED: CYAN250014 PO (07:18)
[2022-06-02] MEDS ORDERED: SERT-414 PO (07:18)
[2022-06-02] MEDS ORDERED: OMEG1CAP16 PO (07:18)
[2022-06-02] MEDS ORDERED: LORA10TA7 PO (07:18)
--- NOTE | 2022-06-02 07:31 | Short Stay Summary-Hospitalist ---
History of Present Illness HPI/Chief Complaint CC: Chest pain HPI: This is a 81yoWF clinic patient of [facility] who lives in [place] who presented to the ER with chest pain. Troponin remained normal. Cardiology evaluated her and was found to have no evidence of ACS so she will be DC. Dementia precludes details. Source: patient Exam Limitations: other (dementia) Date Seen 06/02/22 Time Seen by a Provider: 11:00 Attending Physician Kirk Cuellar MD PCP Admitting Physician: Angeles Rand DO Attending Physician: Angeles Rand DO Referring Physician Date of Admission Jun 01, 2022 at 17:25 Home Medications & Allergies Home Medications Reviewed patient Home Medication Reconciliation performed by pharmacy medication reconciliations histotechnician and/or nursing. Patients Allergies have been reviewed. Allergies Allergies Coded Allergies lisinopril (Unverified Adverse Reaction, Intermediate, Cough, 07/27/18) Cephalosporins (Unverified Adverse Reaction, Mild, Rash, 07/27/18) codeine (Unverified Adverse Reaction, Mild, N/V, 07/27/18) losartan (Unverified Adverse Reaction, Mild, Cough, 07/27/18) Uncoded Allergies ATORVASTIN ( Adverse Reaction, Intermediate, Muscle pain, 07/27/18) CIPROFLOXIN ( Adverse Reaction, Mild, N/V, 07/27/18) SULFA ( Adverse Reaction, Mild, Rash, 07/27/18) Past Pewkdmp-Rgpudl-Dxeljs Hx Patient Social History Marrital Status: single Employed/Student: retired Tobacco Use?: No Smoking Status: Former Smoker Smokeless Tobacco Frequency: Never a User Use of E-Cig and/or Vaping dev: No Substance use?: No Alcohol Use?: Yes Alcohol type: Wine Alcohol Frequency: Rarely Pt feels they are or have been: No Immunizations Up To Date Date of Influenza Vaccine: Dec 30, 2021 Seasonal Allergies Seasonal Allergies: No Current Status status: No status: No Advance Directives: Yes Communicates: Verbally Primary Language: Latvian Preferred Spoken Language: Latvian Is interpretation needed?: No Sensory deficits: Vision impairment Implanted or Applied Medical D: None Past Medical History Surgeries: Gallbladder, Hysterectomy Pulmonary Embolism High Cholesterol, Hypertension, Palpitations Stroke UTI-Chronic Arthritis Diabetes, Non-Insulin dep Blood Disorders: No Review of Systems Constitutional: see HPI Physical Exam Physical Exam Vital Signs Vital Signs - First Documented 06/01/22 06/01/22 06/01/22 14:19 18:18 18:20 Temp 37.0 Pulse 68 Resp 16 B/P (MAP) 180/69 (106) Pulse Ox 99 O2 Delivery Room Air FiO2 21 Capillary Refill : Height, Weight, BMI Height: 5'2.00" Weight: 190lbs. oz. 86.129045gu; 24.34 BMI Method:Stated General Appearance: No Apparent Distress, WD/WN HEENT: PERRL/EOMI, TMs Normal, Normal ENT Inspection Neck: Full Range of Motion, Normal Inspection, Non Tender, Supple Respiratory: Chest Non Tender, Lungs Clear, Normal Breath Sounds, No Accessory Muscle Use, No Respiratory Distress Cardiovascular: Regular Rate, Rhythm, No Edema, No Gallop, No JVD, No Murmur Gastrointestinal: Normal Bowel Sounds, No Organomegaly, No Pulsatile Mass Extremity: Normal Capillary Refill, Normal Inspection, Normal Range of Motion Neurologic/Psychiatric: Alert, Oriented x3, No Motor/Sensory Deficits, Normal 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 Short Stay Diagnosis Discharge Diagnosis-Short Stay Admission Diagnosis Chest pain r/o ACS Final Discharge Diagnosis Chest pain w/o evidence of ACS HTN Dementia Conclusion Plan DC home Clinical Quality Measures AMI/AHF: ASA po Prior to arrival: Yes (324 asa per ems) ANGELES RAND DO Jun 02, 2022 07:31
[2022-06-02 07:44] VITALS: BP 145/57
[2022-06-02] MEDS: meTOprolol TARTRATE 25 MG (LOPRESSOR) TABLET PO SCH (07:45)
[2022-06-02] MEDS: SENNOSIDES 8.6 MG (SENOKOT) TAB PO SCH (07:46)
[2022-06-02] MEDS: DOCUSATE SODIUM 100 MG (COLACE) CAP PO SCH (07:46)
--- NOTE | 2022-06-02 08:39 | Physical Therapy Evaluation ---
PT Evaluation-General Medical Diagnosis Admission Date Jun 01, 2022 at 17:25 Medical Diagnosis: chest pain Onset Date: Jun 01, 2022 Therapy Diagnosis Therapy Diagnosis: weakness Height/Weight Height (Feet): 5 Height (Inches): 2.00 Weight (Pounds): 190 Precautions Precautions/Isolations: Fall Prevention, Standard Precautions Referral Physician: Angeles Rand Reason for Referral: Evaluation/Treatment, Strengthening Medical History Pertinent Medical History: Atrial Fib, Arthritis, CVA, DM, GERD Current History Pt began having chest pain and nausea 06/01/22. Admitted for cardiac work up secondary to past history of heart problems and stroke. Social History Home: Assisted Living Current Living Status: Alone Prior Prior Level of Function SCALE: Activities may be completed with or without assistive devices. 7-Ilathnettm-ggtigzi completes the activity by him/herself with no assistance from a helper. 5-Set-up or Clean-up Assistance-helper sets up or cleans up; patient completes activity. [place] assists only prior to or following the activity. 4-Supervision or Touching Assistance-helper provides verbal cues and/or touching/steadying and/or contact guard assistance as patient completes activity. Assistance may be provided throughout the activity or intermittently. 3-Partial/Moderate Assistance-helper does LESS THAN HALF the effort. [place] lifts, holds or supports trunk or limbs, but provides less than half the effort. 2-Substantial/Maximal Assistance-helper does MORE THAN HALF the effort. [place] lifts or holds trunk or limbs and provides more than half the effort. 1-Nfjgovnqr-ffaqzx does ALL the effort. Patient does none of the effort to complete the activity. Or, the assistance of 2 or more helpers is required for the patient to complete the activity. If activity was not attempted, code reason: 7-Patient Refused. 9-Not Applicable-not attempted and the patient did not perform the activity before the current illness, exacerbation or injury. 10-Not Attempted due to Environmental Limitations-(lack of equipment, weather restraints, etc.). 88-Not Attempted due to Medical Conditions or Safety Concerns. Bed Mobility: 6 Transfers (B,C,W/C): 6 Gait: 6 PT Evaluation-Current Subjective Pt reports she is unsteady at time due to arthritis, old stroke, and neuropathy. She does walk to meals at [employer] using a 4 wheel walker. She says she is feeling close to normal at this time with the exception of nausea. Objective Patient Orientation: Normal For Age ROM/Strength Strength Lower Extremities 4/5 Sensory Sensation Lower Extremities altered light touch in both LE below the knee Transfers Roll Left to Right (QC): 6 Sit to Lying (QC): 6 Lying to Sitting/Side of Bed(Q: 6 Sit to Stand (QC): 6 Chair/Wpb-zi-Dofsl Xfer(QC): 4 Able to get herself in and out of bed. She did have some unsteadiness with initial standing and during turns. Provided steadying assist. Gait Distance: 250 Gait Assistive Device: FWW Comments/Gait Description Ambulated 250ft with FWW and CGA for steadying. She had several instances of lateral sway, but no need for physical assist to recover. Balance Sitting Static: Good Sitting Dynamic: Good Standing Static: Fair Standing Dynamic: Fair Assessment/Needs Pt has a history of falls. She demonstrates lateral ataxia and slow gait. She will benefit from PT during her hospital stay to work on balance and strengthening. Rehab Potential: Good PT [facility] Goals [facility] Goals PT It Trainee Goals Time Frame: Jun 06, 2022 Roll Left & Right (QC): 6 Sit to Lying (QC): 6 Lying-Sitting on Side/Bed(QC): 6 Sit to Stand (QC): 6 Chair/Zoa-bg-Qvrwa Xfer(QC): 6 Walk 150 ft (QC): 6 PT Plan Problem List Problem List: Functional Strength, Gait Treatment/Plan Treatment Plan: Continue Plan of Care Treatment Plan: Functional Activity Marie, Functional Strength, Gait, Safety Treatment Duration: Jun 06, 2022 Frequency: 6 times per week Time Time In: 08 Time Out: 0840 DATE: Jun 02, 2022 Total Billed Treatment Time: 20 Total Billed Treatment visit, evaluation low complexity 20 minutes YASMANY REYNOSO PT Jun 02, 2022 08:39
[2022-06-02] MEDS ORDERED: ASPIRIN E.C. 81 MG (ECOTRIN) TAB PO SCH (09:00)
--- NOTE | 2022-06-02 09:37 | Consultation-Cardiology ---
HPI-Cardiology Cardiology Consultation Date of Consultation 06/02/22 Date of Admission Time Seen by Provider: 09:35 Indication: Chest pain HPI 81-year-old lady with history of coronary artery disease, reported that she had a heart attack in the remote past and had a cardiac catheterization done in [place] but not sure what it was done. Started to have chest pain and shortness of breath yesterday and came into the emergency room, currently feeling better, EKG did not show any acute changes, cardiac enzymes were negative. She is currently laying down comfortably in bed. Denied any pedal edema. History of smoking in the remote past Home Medications & Allergies Allergies: Coded Allergies: lisinopril (Unverified Adverse Reaction, Intermediate, Cough, 07/27/18) Cephalosporins (Unverified Adverse Reaction, Mild, Rash, 07/27/18) codeine (Unverified Adverse Reaction, Mild, N/V, 07/27/18) losartan (Unverified Adverse Reaction, Mild, Cough, 07/27/18) Uncoded Allergies: ATORVASTIN (Adverse Reaction, Intermediate, Muscle pain, 07/27/18) CIPROFLOXIN (Adverse Reaction, Mild, N/V, 07/27/18) SULFA (Adverse Reaction, Mild, Rash, 07/27/18) Home Medication List Reviewed: Yes [id number]-Nlyjcf Hx Patient Social History Marital Status: Employed/Student: retired Smoking Status: Former Smoker Recent Hopitalizations: No Have you traveled recently?: Yes Alcohol Use?: Yes Immunizations Up To Date Date of Influenza Vaccine: Dec 30, 2021 Past Medical History Discussed below Family Medical History Significant Family History: No Pertinent Family Hx Review of Systems-General Review of Systems Constitutional: No chills, No diaphoresis, No malaise, No weakness EENTM: see HPI, no symptoms reported Respiratory: see HPI; No cough, No dyspnea on exertion, No hemoptysis, No orthopnea, No phlegm; short of breath; No stridor, No wheezing, No other Cardiovascular: see HPI, chest pain; No edema, No Hx of Intervention, No palpitations, No syncope, No vascular heart diseas, No other Gastrointestinal: no symptoms reported, see HPI Genitourinary: no symptoms reported, see HPI Musculoskeletal: muscle pain Skin: No change in color, No change in hair/nails Psychiatric/Neurological: Numbness All Other Systems Reviewed Negative Unless Noted: Yes Reviewed Test Results Reviewed Test Results Lab Laboratory Tests Test 06/01/22 14:26 06/01/22 17:23 06/02/22 03:53 Range/Units White Blood Count 4.7 4.8 4.3-11.0 10^3/uL Red Blood Count 4.54 4.00 3.80-5.11 10^6/uL Hemoglobin 9.5 L 8.3 L 11.5-16.0 g/dL Hematocrit 30 L 26 L 35-52 % Mean Corpuscular Volume 65 L 65 L 80-99 fL Mean Corpuscular Hemoglobin 21 L 21 L 25-34 pg Mean Corpuscular Hemoglobin Concent 32 32 32-36 g/dL Red Cell Distribution Width 15.8 H 15.7 H 10.0-14.5 % Platelet Count 532 H 498 H 130-400 10^3/uL Mean Platelet Volume 9.6 10.3 9.0-12.2 fL Immature Granulocyte % (Auto) 0 0 % Neutrophils (%) (Auto) 65 51 42-75 % Lymphocytes (%) (Auto) 22 34 12-44 % Monocytes (%) (Auto) 7 9 0-12 % Eosinophils (%) (Auto) 4 5 0-10 % Basophils (%) (Auto) 2 2 0-10 % Neutrophils # (Auto) 3.1 2.5 1.8-7.8 10^3/uL Lymphocytes # (Auto) 1.0 1.6 1.0-4.0 10^3/uL Monocytes # (Auto) 0.3 0.4 0.0-1.0 10^3/uL Eosinophils # (Auto) 0.2 0.2 0.0-0.3 10^3/uL Basophils # (Auto) 0.1 0.1 0.0-0.1 10^3/uL Immature Granulocyte # (Auto) 0.0 0.0 0.0-0.1 10^3/uL Prothrombin Time 13.5 12.2-14.7 SEC INR Comment 1.0 0.8-1.4 Activated Partial Thromboplast Time 24 24-35 SEC Sodium Level 139 140 135-145 MMOL/L Potassium Level 4.2 3.8 3.6-5.0 MMOL/L Chloride Level 108 H 110 H 98-107 MMOL/L Carbon Dioxide Level 22 21 21-32 MMOL/L Anion Gap 9 9 5-14 MMOL/L Blood Urea Nitrogen 19 H 20 H 7-18 MG/DL Creatinine 1.35 H 1.28 0.60-1.30 MG/DL Estimat Glomerular Filtration Rate 40 43 BUN/Creatinine Ratio 14 16 Glucose Level 116 H 100 70-105 MG/DL Calcium Level 10.2 H 10.9 H 8.5-10.1 MG/DL Corrected Calcium 10.3 H 11.4 H 8.5-10.1 MG/DL Magnesium Level 2.1 1.6-2.4 MG/DL Total Bilirubin 0.3 0.3 0.1-1.0 MG/DL Aspartate Amino Transf (AST/SGOT) 31 17 5-34 U/L Alanine Aminotransferase (ALT/SGPT) 14 11 0-55 U/L Alkaline Phosphatase 80 67 40-136 U/L Myoglobin 49.0 10.0-92.0 NG/ML Troponin I < 0.028 < 0.028 < 0.028 <0.028 NG/ML B-Type Natriuretic Peptide 265.7 H <100.0 PG/ML Total Protein 6.4 5.9 L 6.4-8.2 GM/DL Albumin 3.9 3.4 3.2-4.5 GM/DL Lipase 30 8-78 U/L Triglycerides Level 157 H <150 MG/DL Cholesterol Level 235 H < 200 MG/DL LDL Cholesterol Direct 159 H 1-129 MG/DL VLDL Cholesterol 31 5-40 MG/DL HDL Cholesterol 48 40-60 MG/DL Physical Exam Physical Exam Vital Signs Vital Signs - First Documented 06/01/22 06/01/22 06/01/22 14:19 18:18 18:20 Temp 37.0 Pulse 68 Resp 16 B/P (MAP) 180/69 (106) Pulse Ox 99 O2 Delivery Room Air FiO2 21 Capillary Refill : Height, Weight, BMI Height: 5'2.00" Weight: 190lbs. oz. 86.078331xi; 24.34 BMI Method:Stated General Appearance: No Apparent Distress, WD/WN HEENT: PERRL/EOMI, TMs Normal, Normal ENT Inspection Neck: Full Range of Motion, Normal Inspection, Non Tender, Supple Respiratory: Chest Non Tender, Lungs Clear, Normal Breath Sounds, No Accessory Muscle Use, No Respiratory Distress Cardiovascular: Regular Rate, Rhythm, No Edema, No Gallop, No JVD, No Murmur Gastrointestinal: Normal Bowel Sounds, No Organomegaly, No Pulsatile Mass Extremity: Normal Capillary Refill, Normal Inspection, Normal Range of Motion Neurologic/Psychiatric: Alert, Oriented x3, No Motor/Sensory Deficits, Normal 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 No recent cardiac work-up, cardiac enzymes and EKG did not show any acute abnormality Okay for discharge and follow-up as an outpatient Planning to evaluate stress test as an outpatient Hypertension, controlled, continue on current medication History of coronary artery disease, clinically stable at this time History of tobaccoism, has stopped smoking over 15 years ago Dementia Hyperlipidemia, intolerant to statin Clinical Quality Measures AMI/AHF: ASA po Prior to arrival: Yes (324 asa per ems) KENYON FISH MD Jun 02, 2022 09:37
[2022-06-02 11:47] VITALS: BP 140/55
[2022-06-02] MEDS ORDERED: ENOXAPARIN 60 MG/0.6 ML (LOVENOX) SYR SC SCH (17:00)
== END 2022-06-02 12:28 | disposition home or self-care (01) ==
LOC: EDUNIT# 14:14 → ER 14:15 → CSD 17:25
PROVIDERS: ADMIT Internal Medicine; ATTEND Internal Medicine
DX: R07.89 Other chest pain (principal); I25.10 Atherosclerotic heart disease of native coronary artery without angina pectoris; I10 Essential (primary) hypertension; E78.5 Hyperlipidemia, unspecified; F03.90 Unspecified dementia, unspecified severity, without behavioral disturbance, psychotic disturbance, mood disturbance, and anxiety; Z87.891 Personal history of nicotine dependence; Z79.899 Other long term (current) drug therapy
CPT/HCPCS: 71045; 80053 ×2; 80061; 83690; 83735; 83874; 83880; 84484 ×2; 85025 ×2; 85610; 85730; 93041; 99284; C8929; 36415; 93306; 96375

== ENCOUNTER → 2022-08-15 | Outpatient (CLI) | payer MEDICARE ==
[~2022-08-15] MED LIST changes: +ACET325C7 PO; +CATHETER FLUSH 10 ML SYR IVP PRN; +CHOL200025 PO; +CYAN250014 PO; +LORA10TA7 PO; +OMEG1CAP16 PO; +PANT40TA52 PO; +PSYL660P17 PO; +REGADENOSON 0.4 MG/5 ML SYR (LEXISCAN) IV ONE; +SERT-414 PO; +TRIM100T PO
[2022-08-15 13:14] VITALS: BP 218/75
[2022-08-15 13:20] VITALS: BP 209/71
--- NOTE | 2022-08-15 15:11 | Cardiology Stress Test Report ---
Stress Test Report Date of Procedure/Referring: Date of Procedure: August 15, 2022 PCP Kirk Cuellar MD Admitting Physician Admitting Physician: Attending Physician: Suhas Jewell MD Baseline Heart Rate: 74 Baseline Blood Pressure: Blood Pressure Systolic: 209 Blood Pressure Diastolic: 71 Baseline Vitals Vital Signs Date Time Temp Pulse Resp B/P (MAP) Pulse Ox O2 Delivery O2 Flow Rate FiO2 08/15/22 13:14 74 218/75 (122) Baseline EKG: Baseline EKG: NSR Summary After explaining the procedure to the patient, she signed a consent and then brought to the stress nuclear laboratory. Patient received 0.4 mg Lexiscan for stress test, ECG, heart rate and blood pressure were monitored continuously. Resting and stress dose of radio tracer were injected, imaging was acquired and reviewed in short axis, horizontal long axis and vertical long axis views. TID: 0.8 SSS: 4 SDS: 4 EF: 77 Patient tolerated Lexiscan well Increased intestinal uptake affecting the quality of the images, overall no significant ischemia or infarction noted on SPECT images Normal left ventricular size, ejection fraction 77% Copy Copies To 1: KIRK CUELLAR MD, BASHAR J MD August 15, 2022 15:11
== END ==
LOC: CARD 11:16
PROVIDERS: ATTEND Internal Medicine Cardiovascular Disease
DX: I10 Essential (primary) hypertension (principal); I25.10 Atherosclerotic heart disease of native coronary artery without angina pectoris; R07.2 Precordial pain
CPT/HCPCS: 78452; 93017; A9502

== ENCOUNTER 2022-11-30 10:12 | Observation (INO) | payer MEDICARE ==
[~2022-11-30] VITALS: Ht 157.4 cm; Wt 63.8 kg
[2022-11-30] VITALS (10 sets, daily range): BP systolic 121–184; BP diastolic 60–88
[~2022-11-30 10:12] MED LIST changes: -CATHETER FLUSH 10 ML SYR IVP PRN; -REGADENOSON 0.4 MG/5 ML SYR (LEXISCAN) IV ONE
[2022-11-30] MEDS ORDERED: NS IV 500 ML 500 ML IV SCH (10:30)
[2022-11-30] MEDS ORDERED: diphenhydrAMINE 25 MG TABLET PO PRN (10:30)
[2022-11-30] MEDS ORDERED: CALCIUM CARBONATE 500 MG CHEW TABLET PO PRN (10:30)
[2022-11-30] MEDS ORDERED: ANTACID SUSPENSION 30 ML UDC PO PRN (10:30)
[2022-11-30] MEDS ORDERED: LACTULOSE SYRUP 10GM/15ML 30ML UDC PO PRN (10:30)
[2022-11-30] MEDS ORDERED: HYDROmorphone INJECTION 2 MG/ML VIAL IV PRN (10:30)
[2022-11-30] MEDS ORDERED: BISACODYL 10 MG SUPPOSITORY PR PRN (10:30)
[2022-11-30] MEDS ORDERED: MILK OF MAGNESIA 400 MG/5 ML 30 ML UDC PO PRN (10:30)
[2022-11-30] MEDS ORDERED: ACETAMINOPHEN 325 MG TABLET PO PRN (10:30)
[2022-11-30] MEDS ORDERED: ONDANSETRON 4 MG ORAL DISSOLVE TABLET PO PRN (10:30)
[2022-11-30] MEDS ORDERED: ONDANSETRON INJECTION 4 MG/2 ML (SDV) IV PRN (10:30)
[2022-11-30] MEDS ORDERED: diphenhydrAMINE INJ 50 MG/ML VIAL IVP PRN (10:30)
[2022-11-30] MEDS ORDERED: MELATONIN 3 MG TABLET PO PRN (10:30)
--- NOTE | 2022-11-30 10:34 | History & Physical ---
History of Present Illness HPI/Chief Complaint Chief complaint: Symptomatic anemia HPI: This is an 82-year-old female patient at [facility] who presented as a direct admit after labs were found to have a hemoglobin of 6.7 which was new. Patient had been falling and unable to ambulate as well as she usually does. She does have neuropathy. Dementia precludes anything more detailed. No report of bloody stools. She never recalls having a transfusion. Source: patient, RN/MD, old records Exam Limitations: no limitations Date Seen 11/30/22 Time Seen by a Provider: 11:30 Attending Physician Kirk Cuellar MD PCP Admitting Physician: Angeles Rand DO Attending Physician: Angeles Rand DO Referring Physician Date of Admission Home Medications & Allergies Home Medications Reviewed patient Home Medication Reconciliation performed by pharmacy medication reconciliations component technician and/or nursing. Patients Allergies have been reviewed. Allergies Allergies Coded Allergies lisinopril (Unverified Adverse Reaction, Intermediate, Cough, 07/27/18) Cephalosporins (Unverified Adverse Reaction, Mild, Rash, 07/27/18) codeine (Unverified Adverse Reaction, Mild, N/V, 07/27/18) losartan (Unverified Adverse Reaction, Mild, Cough, 07/27/18) Uncoded Allergies ATORVASTIN ( Adverse Reaction, Intermediate, Muscle pain, 07/27/18) CIPROFLOXIN ( Adverse Reaction, Mild, N/V, 07/27/18) SULFA ( Adverse Reaction, Mild, Rash, 07/27/18) Past Yccrgav-Vehwon-Wmttlx Hx Past Med/Social Hx: Reviewed Nursing Past Med/Soc Hx, Reviewed and Corrections made Patient Social History Marrital Status: single Employed/Student: retired Alcohol Use: Denies Use Smoking Status: Unknown if Ever Smoked Recent Hopitalizations: No Immunizations Up To Date Date of Influenza Vaccine: Dec 30, 2021 Seasonal Allergies Seasonal Allergies: No Past Medical History Surgeries: Gallbladder, Hysterectomy Cardiac: High Cholesterol, Hypertension, Palpitations Neurological: Dementia, Stroke Genitourinary: UTI-Chronic Musculoskeletal: Arthritis Endocrine: Diabetes, Non-Insulin dep History of Blood Disorders: No Family History No Pertinent Family Hx Review of Systems Constitutional: see HPI, dizziness, malaise, weakness EENTM: no symptoms reported Respiratory: no symptoms reported Cardiovascular: no symptoms reported Gastrointestinal: no symptoms reported Genitourinary: no symptoms reported Musculoskeletal: no symptoms reported Skin: no symptoms reported Psychiatric/Neurological: No Symptoms Reported All Other Systems Reviewed Negative Unless Noted: Yes Physical Exam Physical Exam Vital Signs Vital Signs - First Documented 11/30/22 10:57 Temp 36.2 Pulse 75 Resp 17 B/P (MAP) 159/73 (101) Pulse Ox 97 O2 Delivery Room Air Capillary Refill : Height, Weight, BMI Height: 5'2.00" Weight: 190lbs. oz. 86.169327qk; 24.34 BMI Method:Stated General Appearance: No Apparent Distress, WD/WN, Chronically ill Eyes: Bilateral Eye Normal Inspection, Bilateral Eye PERRL HEENT: PERRL/EOMI, Normal ENT Inspection, Pharynx Normal Neck: Full Range of Motion, Normal Inspection, Non Tender, Supple, Carotid Bruit Respiratory: Chest Non Tender, Lungs Clear, Normal Breath Sounds, No Accessory Muscle Use, No Respiratory Distress Cardiovascular: Regular Rate, Rhythm, No Edema, No Gallop, No JVD, No Murmur, Normal Peripheral Pulses Gastrointestinal: Normal Bowel Sounds, No Organomegaly, No Pulsatile Mass, Non Tender, Soft Back: Normal Inspection, No CVA Tenderness, No Vertebral Tenderness Extremity: Normal Capillary Refill, Normal Inspection, Normal Range of Motion, Non Tender, No Calf Tenderness, No Pedal Edema Neurologic/Psychiatric: Alert, Oriented x3, No Motor/Sensory Deficits, Normal Mood/Affect, Other (Poor recall) Skin: Normal Color, Warm/Dry Lymphatic: No Adenopathy Results Results/Procedures Labs Laboratory Tests 11/30/22 12:12 11/30/22 12:18 Patient resulted labs reviewed. Assessment/Plan Admission Diagnosis Assessment: Symptomatic anemia due to severe iron deficiency of unknown source of loss Dizziness Recent falls Dementia Hypertension Hyperlipidemia Plan: Transfuse Consult general surgery PPI Iron supplementation B12 supplementation empirically Admission Status: Observation Clinical Quality Measures DVT/VTE Risk/Contraindication: Contraindications-Pharm: Other *list below* Other: anemia ANGELES RAND DO Nov 30, 2022 10:34
--- NOTE | 2022-11-30 11:13 | Consultation - Surgery ---
ULICESRAMINLUCAH 11/30/22 1113: History of Present Illness History of Present Illness Patient Consulted On(taryn/time) 11/30/22 11:06 Date Seen by Provider: Nov 30, 2022 Time Seen by Provider: 11:06 Reason for Visit: Consult from Dr. Rand History of Present Illness Pt admitted for anemia (6.7). jail has been completing labs and sent to hospital after this mornings results. Pt has hx of falls times 1 wk in senior care. Pt denies localized pain. States sometimes legs just get weak and she slid es to ground. Pt daughter present and states that pt is an unreliable historian. Allergies and Home Medications Allergies Coded Allergies: lisinopril (Unverified Adverse Reaction, Intermediate, Cough, 07/27/18) Cephalosporins (Unverified Adverse Reaction, Mild, Rash, 07/27/18) codeine (Unverified Adverse Reaction, Mild, N/V, 07/27/18) losartan (Unverified Adverse Reaction, Mild, Cough, 07/27/18) Uncoded Allergies: ATORVASTIN (Adverse Reaction, Intermediate, Muscle pain, 07/27/18) CIPROFLOXIN (Adverse Reaction, Mild, N/V, 07/27/18) SULFA (Adverse Reaction, Mild, Rash, 07/27/18) Patient Home Medication List Acetaminophen (Acetaminophen) 500 Mg Tablet, 1,000 MG PO DAILY, (Reported) Entered as Reported by: KARTHIK MULLEN on 11/30/221724 Last Action: New Order Acetaminophen (Acetaminophen) 500 Mg Tablet, 500 MG PO HS, (Reported) Entered as Reported by: KARTHIK MULLEN on 11/30/221724 Last Action: New Order Aspirin (Aspirin) 81 Mg Tab.chew, 81 MG PO DAILY, (Reported) Entered as Reported by: RABIA LIMA on 07/27/18 1222 Last Action: Last Taken Edited Cholecalciferol (Vitamin D3) (Vitamin D3) 50 Mcg (2000 Unit) Tablet, 50 MCG PO DAILY, (Reported) Entered as Reported by: CHAYA RICHARDS on 06/02/22 0718 Last Action: Last Taken Edited Cyanocobalamin (Vitamin B-12) (Vitamin B12) 2,500 Mcg Tab.chew, 1,000 MCG PO DAILY, (Reported) Entered as Reported by: CHAYA RICHARDS on 06/02/22717 Last Action: Last Taken Edited Loratadine (Loratadine) 10 Mg Tablet, 10 MG PO DAILY, (Reported) Entered as Reported by: CHAYA RICHARDS on 06/02/22717 Last Action: Last Taken Edited Argyle-3 Fatty Acids/Fish Oil (Fish Oil Conc 1,000 mg Softgel) 300 Mg-1,000 Mg Capsule, 1 EACH PO DAILY, (Reported) Entered as Reported by: CHAYA RICHARDS on 06/02/22717 Last Action: Last Taken Edited Pantoprazole Sodium (Pantoprazole Sodium) 40 Mg Tablet.dr, 40 MG PO DAILY, (Reported) Entered as Reported by: CHAYA RICHARDS on 06/02/22717 Last Action: Last Taken Edited Psyllium Husk (Metamucil) 3.4 Gram/5.4 Gram Powder, 660 GM PO, (Reported) Entered as Reported by: CHAYA RICHARDS on 06/02/22717 Last Action: Last Taken Edited Sertraline HCl (Sertraline HCl) 50 Mg Tablet, 50 MG PO HS, (Reported) Entered as Reported by: KARTHIK MULLEN on 11/30/221724 Last Action: New Order Trimethoprim (Trimethoprim) 100 Mg Tablet, 100 MG PO DAILY, (Reported) Entered as Reported by: CHAYA RICHARDS on 06/02/22717 Last Action: Last Taken Edited Discontinued Medications Acetaminophen (Tylenol) 325 Mg Capsule, 1,000 MG PO DAILY, (Reported) Discontinued Reason: New Order Entered as Reported by: CHAYA RICHARDS on 06/02/22717 Last Action: Discontinued Past Nwcrkxi-Bgjkwn-Ciujup Hx Patient Social History Smoking Status: Never a Smoker Recent Hopitalizations: No Have you traveled recently?: No Immunizations Up To Date Tetanus Booster (TDap): Unknown Date of Influenza Vaccine: Dec 30, 2021 Seasonal Allergies Seasonal Allergies: No Surgeries History of Surgeries: Yes Surgeries: Gallbladder, Hysterectomy Respiratory History of Respiratory Disorde: Yes Respiratory Disorders: Pulmonary Embolism Cardiovascular History of Cardiac Disorders: Yes Cardiac Disorders: High Cholesterol, Hypertension, Palpitations Neurological History of Neurological Disord: Yes (NOV 2022: B/L LE WEAKNESS) Neurological Disorders: Stroke Reproductive System : No 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 Genitourinary History of Genitourinary Disor: Yes (ACUTE CYSTITIS HX) Genitourinary Disorders: UTI-Chronic Gastrointestinal History of Gastrointestinal Di: No Musculoskeletal History of Musculoskeletal Dis: Yes (BURSITIS BOTH KNEES) Musculoskeletal Disorders: Arthritis Endocrine History of Endocrine Disorders: Yes (DM TYPE II) Endocrine Disorders: Diabetes, Non-Insulin dep HEENT History of HEENT Disorders: No Cancer History of Cancer: No Psychosocial History of Psychiatric Problem: No Integumentary History of Skin or Integumenta: No Blood Transfusions History of Blood Disorders: No Family Medical History Significant Family History: No Pertinent Family Hx Review of Systems-General Constitutional: No chills, No fever; weight loss (PT HAS NOT BEEN EATING WELL AFTER 2 YEARS AGO) Respiratory: dyspnea on exertion : No Physical Exam-General Problems Physical Exam Vital Signs Capillary Refill : General Appearance: no apparent distress Respiratory: no accessory muscle use Gastrointestinal: non tender, soft Assessment/Plan Assessment/Plan Assessment/Plan Pending testing ordered. No obvious external bleeding noted on physical exam. Clear fluids. EGD. Clinical Quality Measures DVT/VTE Risk/Contraindication: Contraindications-Pharm: Other *list below* Other: anemia VENKATA SOLARES DO 11/30/222112: History of Present Illness History of Present Illness History of Present Illness Consult from Dr. Rand for anemia. Patient is a 82 year old female who was found to have hgb 6.7 and admitted to hospital Patient poor historian. Not noticed any dark or bloody stools. Has had some falls in senior care. No pain. Denies n/v fever sweats chills shortness of breath or chest pain at this time. Allergies and Home Medications Allergies Coded Allergies: lisinopril (Unverified Adverse Reaction, Intermediate, Cough, 07/27/18) Cephalosporins (Unverified Adverse Reaction, Mild, Rash, 07/27/18) codeine (Unverified Adverse Reaction, Mild, N/V, 07/27/18) losartan (Unverified Adverse Reaction, Mild, Cough, 07/27/18) Uncoded Allergies: ATORVASTIN (Adverse Reaction, Intermediate, Muscle pain, 07/27/18) CIPROFLOXIN (Adverse Reaction, Mild, N/V, 07/27/18) SULFA (Adverse Reaction, Mild, Rash, 07/27/18) Patient Home Medication List Home Medication List Reviewed: Yes Acetaminophen (Acetaminophen) 500 Mg Tablet, 1,000 MG PO DAILY, (Reported) Entered as Reported by: KARTHIK MULLEN on 11/30/221724 Last Action: New Order Acetaminophen (Acetaminophen) 500 Mg Tablet, 500 MG PO HS, (Reported) Entered as Reported by: KARTHIK MULLEN on 11/30/221724 Last Action: New Order Aspirin (Aspirin) 81 Mg Tab.chew, 81 MG PO DAILY, (Reported) Entered as Reported by: RABIA LIMA on 07/27/18 1222 Last Action: Last Taken Edited Cholecalciferol (Vitamin D3) (Vitamin D3) 50 Mcg (2000 Unit) Tablet, 50 MCG PO DAILY, (Reported) Entered as Reported by: CHAYA RICHARDS on 06/02/22717 Last Action: Last Taken Edited Cyanocobalamin (Vitamin B-12) (Vitamin B12) 2,500 Mcg Tab.chew, 1,000 MCG PO DAILY, (Reported) Entered as Reported by: CHAYA RICHARDS on 06/02/22717 Last Action: Last Taken Edited Loratadine (Loratadine) 10 Mg Tablet, 10 MG PO DAILY, (Reported) Entered as Reported by: CHAYA RICHARDS on 06/02/22717 Last Action: Last Taken Edited Argyle-3 Fatty Acids/Fish Oil (Fish Oil Conc 1,000 mg Softgel) 300 Mg-1,000 Mg Capsule, 1 EACH PO DAILY, (Reported) Entered as Reported by: CHAYA RICHARDS on 06/02/22717 Last Action: Last Taken Edited Pantoprazole Sodium (Pantoprazole Sodium) 40 Mg Tablet.dr, 40 MG PO DAILY, ( Reported) Entered as Reported by: CHAYA RICHARDS on 06/02/22717 Last Action: Last Taken Edited Psyllium Husk (Metamucil) 3.4 Gram/5.4 Gram Powder, 660 GM PO, (Reported) Entered as Reported by: CHAYA RICHARDS on 06/02/22717 Last Action: Last Taken Edited Sertraline HCl (Sertraline HCl) 50 Mg Tablet, 50 MG PO HS, (Reported) Entered as Reported by: KARTHIK MULLEN on 11/30/221724 Last Action: New Order Trimethoprim (Trimethoprim) 100 Mg Tablet, 100 MG PO DAILY, (Reported) Entered as Reported by: CHAYA RICHARDS on 06/02/22717 Last Action: Last Taken Edited Discontinued Medications Acetaminophen (Tylenol) 325 Mg Capsule, 1,000 MG PO DAILY, (Reported) Discontinued Reason: New Order Entered as Reported by: CHAYA MAURICE on 06/02/22717 Last Action: Discontinued Review of Systems-General Constitutional: No chills, No fever EENTM: No blurred vision, No double vision Respiratory: dyspnea on exertion Cardiovascular: No chest pain, No palpitations Gastrointestinal: No no symptoms reported, No see HPI Genitourinary: No decreased output, No discharge Musculoskeletal: No back pain, No joint pain Skin: No change in color, No change in hair/nails Psychiatric/Neurological: Denies Anxiety, Denies Depressed, Denies Emotional Problems All Other Systems Reviewed Negative Unless Noted: Yes (Negative excepted noted.) Physical Exam-General Problems Physical Exam General Appearance: no apparent distress, other (elderly) HEENT: PERRL/EOMI, normal ENT inspection Neck: non-tender, supple Respiratory: chest non-tender, no respiratory distress, no accessory muscle use Cardiovascular: regular rate, rhythm, no JVD Gastrointestinal: non tender, soft Rectal: deferred Back: normal inspection, no CVA tenderness Extremities: non-tender, normal inspection Neurologic/Psychiatric: alert, normal mood/affect Skin: warm/dry, pallor Lymphatic: no adenopathy Assessment/Plan Assessment/Plan Assessment/Plan Anemia Gerd Dementia follow hgb and transfuse prbc as needed protonix hold any anticoagulation clear liquids consider endoscopy inpatient vs outpatient Supervisory-Addendum Brief Verification & Attestation Participated in pt care: history, MDM, physical Personally performed: exam, history, MDM, supervision of care Care discussed with: Medical Student Procedures: n/a Results interpretation: Verified all documentation Verification and Attestation of Medical Student E/M Service A medical student performed and documented this service in my presence. I reviewed and verified all information documented by the medical student and made modifications to such information, when appropriate. I personally performed the physical exam and medical decision making. Venkata Solares, Nov 30, 2022,21:16 MAY RANDALL Nov 30, 2022 11:13 VENKATA SOLARES DO Nov 30, 2022 21:13
[2022-11-30 12:27] LABS: ABSOLUTE RETIC # 40 10e9/uL (24-90); BASOPHILS # (AUTO) 0.1 10^3/uL (0.0-0.1); BASOPHILS % (AUTO) 2 % (0-10); EOSINOPHILS # (AUTO) 0.3 10^3/uL (0.0-0.3); EOSINOPHILS % (AUTO) 5 % (0-10); HEMATOCRIT 23 % (35-52); LYMPHOCYTES % (AUTO) 20 % (12-44); MEAN CORPUSCULAR HEMOGLOBIN 18 pg (25-34); MEAN CORPUSCULAR HGB CONC 30 g/dL (32-36); MEAN CORPUSCULAR VOLUME 58 fL (80-99); MEAN PLATELET VOLUME 9.8 fL (9.0-12.2); MONOCYTES # (AUTO) 0.4 10^3/uL (0.0-1.0); MONOCYTES % (AUTO) 8 % (0-12); NEUTROPHILS # (AUTO) 3.3 10^3/uL (1.8-7.8); NEUTROPHILS % (AUTO) 65 % (42-75); PLATELET COUNT 609 10^3/uL (130-400); RETICULOCYTE % 1.01 % (0.50-2.40); WHITE BLOOD COUNT 5.1 10^3/uL (4.3-11.0)
[2022-11-30 12:40] LABS: PROTHROMBIN TIME PATIENT 13.1 SEC (12.2-14.7)
[2022-11-30 12:49] LABS: ALBUMIN 3.7 GM/DL (3.2-4.5); BILIRUBIN,TOTAL 0.4 MG/DL (0.1-1.0); CALCIUM 10.1 MG/DL (8.5-10.1); CREATININE SERUM 1.33 MG/DL (0.60-1.30); POTASSIUM 4.2 MMOL/L (3.6-5.0); TOTAL PROTEIN 5.9 GM/DL (6.4-8.2)
--- NOTE | 2022-11-30 13:22 | Physical Therapy Progress Note ---
Therapy Progress Note Attempted to see patient for PT evaluation. Nurse requested hold as patient is currently receiving blood. Will attempt again tomorrow. PALAK CRUZ PT Nov 30, 2022 13:22
[2022-11-30] MEDS ORDERED: RT-ALBUTEROL SULF 2.5 MG/3 ML PRE-MIX VIAL INH SCH (14:00)
[2022-11-30] MEDS: NS IV 1000 ML 1,000 ML IV SCH (15:09)
[2022-11-30] MEDS: PANTOPRAZOLE INJECTION 40 MG VIAL IV SCH (16:58)
[2022-11-30] MEDS ORDERED: SERT-413 PO (17:25)
[2022-11-30] MEDS ORDERED: ACET-93 PO ×2 (17:25)
[2022-11-30] MEDS ORDERED: amLODIPine 5 MG TABLET PO NR (17:30)
[2022-11-30] MEDS: SENNOSIDES 8.6 MG TABLET PO SCH (20:29)
[2022-11-30] MEDS: DOCUSATE SODIUM 100 MG CAPSULE PO SCH (20:29)
[2022-11-30] MEDS: oxyCODONE IMMEDIATE RELEASE 5 MG TABLET PO PRN (20:33)
[2022-11-30] MEDS: hydrALAZINE INJECTION 20 MG/ML VIAL IV PRN (20:34)
[2022-11-30] MEDS ORDERED: IRON SUCROSE 200 MG/10 ML VIAL IV SCH (21:30)
[2022-11-30] MEDS ORDERED: CYANOCOBALAMIN 1000 MCG/ML 1 ML VIAL IM ONE (21:30)
[2022-11-30] MEDS ORDERED: RT-ALBUTEROL SULF 2.5 MG/3 ML PRE-MIX VIAL INH PRN (21:45)
[2022-12-01 04:59] VITALS: BP 174/75
[2022-12-01] MEDS: NS IV 1000 ML 1,000 ML IV SCH (05:24)
[2022-12-01] MEDS: hydrALAZINE INJECTION 20 MG/ML VIAL IV PRN (05:24)
[2022-12-01] MEDS: oxyCODONE IMMEDIATE RELEASE 5 MG TABLET PO PRN (06:01)
--- NOTE | 2022-12-01 06:06 | Progress Note ---
Subjective Date Seen by a Provider: Dec 01, 2022 Time Seen by a Provider: 09:00 Objective Exam Last Set of Vital Signs Vital Signs Date Time Temp Pulse Resp B/P (MAP) Pulse Ox O2 Delivery O2 Flow Rate FiO2 12/01/22 04:59 36.6 72 18 174/75 (108) 95 Room Air Capillary Refill : I&O Intake and Output 11/30/22 23:59 Intake Total 1480 ml Output Total 601 ml Balance 879 ml Intake Oral 900 ml Other 580 ml Output Urine Total 600 ml Urine/Stool Mix 1 ml # Voids 1 Daily Weight Change No Results Lab Laboratory Tests 11/30/22 12:12: White Blood Count 5.1, Red Blood Count 3.97, Hemoglobin 7.0L, Hematocrit 23L, Mean Corpuscular Volume 58L, Mean Corpuscular Hemoglobin 18L, Mean Corpuscular Hemoglobin Concent 30L, Red Cell Distribution Width 17.9H, Platelet Count 609H, Mean Platelet Volume 9.8, Immature Granulocyte % (Auto) 0, Neutrophils (%) (Auto) 65, Lymphocytes (%) (Auto) 20, Monocytes (%) (Auto) 8, Eosinophils (%) (Auto) 5, Basophils (%) (Auto) 2, Neutrophils # (Auto) 3.3, Lymphocytes # (Auto) 1.0, Monocytes # (Auto) 0.4, Eosinophils # (Auto) 0.3, Basophils # (Auto) 0.1, Immature Granulocyte # (Auto) 0.0, Absolute Reticulocyte Count 40, Percent Reticulocyte Count 1.01 11/30/22 12:18: Prothrombin Time 13.1, INR Comment 1.0, Activated Partial Thromboplast Time 25, Sodium Level 140, Potassium Level 4.2, Chloride Level 108H, Carbon Dioxide Level 23, Anion Gap 9, Blood Urea Nitrogen 16, Creatinine 1.33H, Estimat Glomerular Filtration Rate 40, BUN/Creatinine Ratio 12, Glucose Level 105, Calcium Level 10.1, Corrected Calcium 10.3H, Iron Level 10L, Total Iron Binding Capacity 314, Unsaturated Iron Binding Capacity 304, Transferrin % Saturation 3L, Ferritin 7.4L, Total Bilirubin 0.4, Aspartate Amino Transf (AST/SGOT) 14, Alanine Aminotransferase (ALT/SGPT) 11, Alkaline Phosphatase 59, Total Protein 5.9L, Albumin 3.7, Vitamin B12 Level >2000H Clinical Quality Measures DVT/VTE Risk/Contraindication: Contraindications-Pharm: Other *list below* Other: anemia ETHEL ARANGO DO Dec 01, 2022 06:05
[2022-12-01] MEDS ORDERED: CYANOCOBALAMIN 1,000 MCG TABLET PO SCH (07:00)
--- NOTE | 2022-12-01 07:19 | Progress Note - Surgery ---
MAY RANDALL 12/01/22 0719: Subjective Date Seen by a Provider: Dec 01, 2022 Time Seen by a Provider: 07:14 Subjective/Events-last exam Consult from Dr. Rand. Pt having a hard time mentating. Nausea. No vomiting. Claims diffuse pain on whole body, specifically back pain. States feels worse than yesterday when admitted. Pt poor historian. Review of Systems General: No Night Sweats; Fatigue HEENT: No Head Aches, No Visual Changes Pulmonary: No Dyspnea, No Cough Cardiovascular: No: Palpitations, Edema Gastrointestinal: Nausea; No: Vomiting Genitourinary: No Dysuria, No Frequency Musculoskeletal: other (pt complains of diffuse body pain), back pain Neurological: Confusion; No: Numbness Focused Exam Sepsis Stage: Ruled Out Respiratory: No Accessory Muscle Use; No Respiratory Distress Cardiovascular: Regular Rate, Rhythm, No Edema Capillary Refill: Less Than 3 Seconds Skin: normal color, warm/dry Objective Exam Vital Signs Date Time Temp Pulse Resp B/P (MAP) Pulse Ox O2 Delivery O2 Flow Rate FiO2 12/01/22 04:59 36.6 72 18 174/75 (108) 95 Room Air 12/01/22 01:00 80 11/30/22 23:10 36.5 78 20 121/71 (88) 96 Room Air 11/30/22 20:29 Room Air 11/30/22 20:27 36.9 71 18 165/75 (105) 98 Room Air 11/30/22 19:00 80 11/30/22 18:17 179/65 (103) 11/30/22 16:48 37.0 76 18 184/88 99 Room Air 11/30/22 16:19 37.0 72 16 170/74 (106) 98 Room Air 11/30/22 13:41 36.1 78 18 184/81 99 Room Air 11/30/22 13:27 36.6 86 18 167/60 99 Room Air 11/30/22 12:50 36.3 73 17 174/65 (101) 100 Room Air 11/30/22 12:40 36.2 74 97 11/30/22 12:20 74 11/30/22 11:26 Room Air 11/30/22 10:57 36.2 75 17 159/73 (101) 97 Room Air I & O 12/01/22 07:00 Intake Total 2705 ml Output Total 1501 ml Balance 1204 ml Capillary Refill : General Appearance: No Apparent Distress, WD/WN, Chronically ill HEENT: PERRL/EOMI, Normal ENT Inspection, Pharynx Normal Neck: Full Range of Motion, Normal Inspection, Non Tender, Supple, Carotid Bruit Respiratory: No Accessory Muscle Use, No Respiratory Distress Cardiovascular: Regular Rate, Rhythm, No Edema, Normal Peripheral Pulses Gastrointestinal: non tender, soft Extremity: Normal Inspection, Normal Range of Motion, No Pedal Edema Neurologic/Psychiatric: Disoriented, Other (Poor recall) Skin: Normal Color, Warm/Dry Lymphatic: No Adenopathy Results Lab Laboratory Tests 11/30/22 12:12: White Blood Count 5.1, Red Blood Count 3.97, Hemoglobin 7.0L, Hematocrit 23L, Mean Corpuscular Volume 58L, Mean Corpuscular Hemoglobin 18L, Mean Corpuscular Hemoglobin Concent 30L, Red Cell Distribution Width 17.9H, Platelet Count 609H, Mean Platelet Volume 9.8, Immature Granulocyte % (Auto) 0, Neutrophils (%) (Auto) 65, Lymphocytes (%) (Auto) 20, Monocytes (%) (Auto) 8, Eosinophils (%) (Auto) 5, Basophils (%) (Auto) 2, Neutrophils # (Auto) 3.3, Lymphocytes # (Auto) 1.0, Monocytes # (Auto) 0.4, Eosinophils # (Auto) 0.3, Basophils # (Auto) 0.1, Immature Granulocyte # (Auto) 0.0, Absolute Reticulocyte Count 40, Percent Reticulocyte Count 1.01 11/30/22 12:18: Prothrombin Time 13.1, INR Comment 1.0, Activated Partial Thromboplast Time 25, Sodium Level 140, Potassium Level 4.2, Chloride Level 108H, Carbon Dioxide Level 23, Anion Gap 9, Blood Urea Nitrogen 16, Creatinine 1.33H, Estimat Glomerular Filtration Rate 40, BUN/Creatinine Ratio 12, Glucose Level 105, Calcium Level 10.1, Corrected Calcium 10.3H, Iron Level 10L, Total Iron Binding Capacity 314, Unsaturated Iron Binding Capacity 304, Transferrin % Saturation 3L, Ferritin 7.4L, Total Bilirubin 0.4, Aspartate Amino Transf (AST/SGOT) 14, Alanine Aminotransferase (ALT/SGPT) 11, Alkaline Phosphatase 59, Total Protein 5.9L, Albumin 3.7, Vitamin B12 Level >2000H Assessment/Plan Assessment/Plan Assessment/Plan Anemia: 1 unit pbr transfused 11/30/22 Gerd Dementia follow hgb and transfuse prbc as needed protonix hold any anticoagulation clear liquids consider endoscopy inpatient vs outpatient Clinical Quality Measures DVT/VTE Risk/Contraindication: Contraindications-Pharm: Other *list below* Other: anemia RAY HAQ DO 12/01/22 1134: Subjective Subjective/Events-last exam Pleasant this morning. Overall achy. Hgb improved. Denies n/v fever sweats chills shortness of breath or chest pain at this time. Objective Exam General Appearance: No Apparent Distress, Chronically ill HEENT: PERRL/EOMI, Normal ENT Inspection Neck: Normal Inspection, Supple Respiratory: Chest Non Tender, No Accessory Muscle Use, No Respiratory Distress Cardiovascular: Regular Rate, Rhythm, No JVD Gastrointestinal: non tender, soft Extremity: Normal Inspection, Normal Range of Motion Neurologic/Psychiatric: Alert, Disoriented, Other (Poor recall) Skin: Normal Color, Warm/Dry Lymphatic: No Adenopathy Assessment/Plan Assessment/Plan Assessment/Plan Anemia Gerd Dementia follow hgb and transfuse prbc as needed protonix hold any anticoagulation clear liquids can advance endoscopy can be discussed as outpatient Supervisory-Addendum Brief Verification & Attestation Participated in pt care: history, MDM, physical Personally performed: exam, history, MDM, supervision of care Care discussed with: Medical Student Procedures: n/a Results interpretation: Verified all documentation Verification and Attestation of Medical Student E/M Service A medical student performed and documented this service in my presence. I reviewed and verified all information documented by the medical student and made modifications to such information, when appropriate. I personally performed the physical exam and medical decision making. Ray Haq Dec 01, 2022,11:33 MAY RANDALL Dec 01, 2022 07:19 RAY HAQ DO Dec 01, 2022 11:34
[2022-12-01 07:43] VITALS: BP 127/65
[2022-12-01] MEDS: PANTOPRAZOLE INJECTION 40 MG VIAL IV SCH (08:23)
[2022-12-01] MEDS: DOCUSATE SODIUM 100 MG CAPSULE PO SCH (08:23)
[2022-12-01] MEDS: SENNOSIDES 8.6 MG TABLET PO SCH (08:23)
[2022-12-01] MEDS ORDERED: amLODIPine 5 MG TABLET PO SCH (09:00)
[2022-12-01] MEDS ORDERED: IRON SUCROSE 200 MG/10 ML VIAL IV ONE (10:00)
[2022-12-01] MEDS ORDERED: AMLO-250 PO (10:06)
[2022-12-01] MEDS ORDERED: PANT40TA2 PO (10:06)
[2022-12-01] MEDS ORDERED: IRON150C3 PO (10:06)
--- NOTE | 2022-12-01 10:08 | Discharge Summary ---
Diagnosis/Chief Complaint Date of Admission Nov 30, 2022 at 10:51 Date of Discharge Discharge Date: Dec 01, 2022 Discharge Diagnosis Assessment: Symptomatic anemia due to severe iron deficiency of unknown source of loss Dizziness Recent falls Dementia Hypertension Hyperlipidemia Plan: Transfuse Consult general surgery PPI Iron supplementation B12 supplementation empirically Discharge Summary Discharge Physical Examination Allergies: Coded Allergies: lisinopril (Unverified Adverse Reaction, Intermediate, Cough, 07/27/18) Cephalosporins (Unverified Adverse Reaction, Mild, Rash, 07/27/18) codeine (Unverified Adverse Reaction, Mild, N/V, 07/27/18) losartan (Unverified Adverse Reaction, Mild, Cough, 07/27/18) Uncoded Allergies: ATORVASTIN (Adverse Reaction, Intermediate, Muscle pain, 07/27/18) CIPROFLOXIN (Adverse Reaction, Mild, N/V, 07/27/18) SULFA (Adverse Reaction, Mild, Rash, 07/27/18) Vitals & I&Os Vital Signs Date Time Temp Pulse Resp B/P (MAP) Pulse Ox O2 Delivery O2 Flow Rate FiO2 12/01/22 12:50 36.8 91 14 171/70 96 Room Air General Appearance: Alert, Oriented X3, Cooperative Respiratory: Clear to Auscultation Cardiovascular: Regular Rate Psych/Mental Status: Mental Status NL Hospital Course Was the Problem List Reviewed?: Yes Short hospital course after she was admitted for symptomatic anemia hemoglobin 6.7. Patient was given 1 unit of blood and iron infusions which helped tremendously. General surgery will perform EGD and colonoscopy as an outpatient to identify source of chronic blood loss. PPI was changed to twice daily blood pressure medications initiated and patient was deemed stable for discharge. Labs (last 24 hrs) Laboratory Tests 11/30/22 12:12: White Blood Count 5.1, Red Blood Count 3.97, Hemoglobin 7.0L, Hematocrit 23L, Mean Corpuscular Volume 58L, Mean Corpuscular Hemoglobin 18L, Mean Corpuscular Hemoglobin Concent 30L, Red Cell Distribution Width 17.9H, Platelet Count 609H, Mean Platelet Volume 9.8, Immature Granulocyte % (Auto) 0, Neutrophils (%) (Auto) 65, Lymphocytes (%) (Auto) 20, Monocytes (%) (Auto) 8, Eosinophils (%) (Auto) 5, Basophils (%) (Auto) 2, Neutrophils # (Auto) 3.3, Lymphocytes # (Auto) 1.0, Monocytes # (Auto) 0.4, Eosinophils # (Auto) 0.3, Basophils # (Auto) 0.1, Immature Granulocyte # (Auto) 0.0, Absolute Reticulocyte Count 40, Percent Reticulocyte Count 1.01 11/30/22 12:18: Prothrombin Time 13.1, INR Comment 1.0, Activated Partial Thromboplast Time 25, Sodium Level 140, Potassium Level 4.2, Chloride Level 108H, Carbon Dioxide Level 23, Anion Gap 9, Blood Urea Nitrogen 16, Creatinine 1.33H, Estimat Glomerular Filtration Rate 40, BUN/Creatinine Ratio 12, Glucose Level 105, Calcium Level 10.1, Corrected Calcium 10.3H, Iron Level 10L, Total Iron Binding Capacity 314, Unsaturated Iron Binding Capacity 304, Transferrin % Saturation 3L, Ferritin 7.4L, Total Bilirubin 0.4, Aspartate Amino Transf (AST/SGOT) 14, Alanine [place] otransferase (ALT/SGPT) 11, Alkaline Phosphatase 59, Total Protein 5.9L, Albumin 3.7, Vitamin B12 Level >2000H 12/01/22 10:00: White Blood Count 7.5, Red Blood Count 4.40, Hemoglobin 8.4L, Hematocrit 27L, Mean Corpuscular Volume 62L, Mean Corpuscular Hemoglobin 19L, Mean Corpuscular Hemoglobin Concent 31L, Red Cell Distribution Width 21.2H, Platelet Count 551H, Mean Platelet Volume 9.4, Immature Granulocyte % (Auto) 0, Neutrophils (%) (A uto) 77H, Lymphocytes (%) (Auto) 11L, Monocytes (%) (Auto) 7, Eosinophils (%) (Auto) 4, Basophils (%) (Auto) 2, Neutrophils # (Auto) 5.8, Lymphocytes # (Auto) 0.8L, Monocytes # (Auto) 0.5, Eosinophils # (Auto) 0.3, Basophils # (Auto) 0.1, Immature Granulocyte # (Auto) 0.0, Sodium Level 139, Potassium Level 3.7, Chloride Level 108H, Carbon Dioxide Level 20L, Anion Gap 11, Blood Urea Nitrogen 13, Creatinine 1.15, Estimat Glomerular Filtration Rate 48, BUN/Creatinine Ratio 11, Glucose Level 130H, Calcium Level 9.6, Corrected Calcium 10.0, Total Bilirubin 0.5, Aspartate Amino Transf (AST/SGOT) 15, Alanine Aminotransferase (ALT/SGPT) 8, Alkaline Phosphatase 56, Total Protein 5.7L, Albumin 3.5 Pending Labs Laboratory Tests 11/30/22 12:12: White Blood Count 5.1, Red Blood Count 3.97, Hemoglobin 7.0, Hematocrit 23, Mean Corpuscular Volume 58, Mean Corpuscular Hemoglobin 18, Mean Corpuscular Hemoglobin Concent 30, Red Cell Distribution Width 17.9, Platelet Count 609, [place] Platelet Volume 9.8, Immature Granulocyte % (Auto) 0, Neutrophils (%) (Auto) 65, Lymphocytes (%) (Auto) 20, Monocytes (%) (Auto) 8, Eosinophils (%) (Auto) 5, Basophils (%) (Auto) 2, Neutrophils # (Auto) 3.3, Lymphocytes # (Auto) 1.0, Monocytes # (Auto) 0.4, Eosinophils # (Auto) 0.3, Basophils # (Auto) 0.1, Immature Granulocyte # (Auto) 0.0, Absolute Reticulocyte Count 40, Percent Reticulocyte Count 1.01 11/30/22 12:18: Prothrombin Time 13.1, INR Comment 1.0, Activated Partial Thromboplast Time 25, Sodium Level 140, Potassium Level 4.2, Chloride Level 108, Carbon Dioxide Level 23, Anion Gap 9, Blood Urea Nitrogen 16, Creatinine 1.33, Estimat Glomerular Filtration Rate 40, BUN/Creatinine Ratio 12, Glucose Level 105, Calcium Level 10.1, Corrected Calcium 10.3, Iron Level 10, Total Iron Binding Capacity 314, Unsaturated Iron Binding Capacity 304, Transferrin % Saturation 3, Ferritin 7.4, Total Bilirubin 0.4, Aspartate Amino Transf (AST/SGOT) 14, Alanine Aminotransferase (ALT/SGPT) 11, Alkaline Phosphatase 59, Total Protein 5.9, Albumin 3.7, Vitamin B12 Level >2000 12/01/22 10:00: White Blood Count 7.5, Red Blood Count 4.40, Hemoglobin 8.4, Hematocrit 27, Mean Corpuscular Volume 62, Mean Corpuscular Hemoglobin 19, Mean Corpuscular Hemoglobin Concent 31, Red Cell Distribution Width 21.2, Platelet Count 551, Mean Platelet Volume 9.4, Immature Granulocyte % (Auto) 0, Neutrophils (%) (Auto) 77, Lymphocytes (%) (Auto) 11, Monocytes (%) (Auto) 7, Eosinophils (%) (Auto) 4, Basophils (%) (Auto) 2, Neutrophils # (Auto) 5.8, Lymphocytes # (Auto) 0.8, Monocytes # (Auto) 0.5, Eosinophils # (Auto) 0.3, Basophils # (Auto) 0.1, Immature Granulocyte # (Auto) 0.0, Sodium Level 139, Potassium Level 3.7, Chloride Level 108, Carbon Dioxide Level 20, Anion Gap 11, Blood Urea Nitrogen 13, Creatinine 1.15, Estimat Glomerular Filtration Rate 48, BUN/Creatinine Ratio 11, Glucose Level 130, Calcium Level 9.6, Corrected Calcium 10.0, Total Bilirubin 0.5, Aspartate Amino Transf (AST/SGOT) 15, Alanine Aminotransferase (ALT/SGPT) 8, Alkaline Phosphatase 56, Total Protein 5.7, Albumin 3.5 Discharge Home Medications: Active Scripts Active Ferrex 150 (Iron Polysaccharide Complex) 150 Mg Iron Capsule 150 Mg PO Q48H Protonix (Pantoprazole Sodium) 40 Mg Tablet.dr 40 Mg PO BID Amlodipine Besylate 5 Mg Tablet 5 Mg PO DAILY Reported Sertraline HCl 50 Mg Tablet 50 Mg PO HS Acetaminophen 500 Mg Tablet 500 Mg PO HS Acetaminophen 500 Mg Tablet 1,000 Mg PO DAILY 30 Days Metamucil (Psyllium Husk) 3.4 Gram/5.4 Gram Powder 660 Gm PO Loratadine 10 Mg Tablet 10 Mg PO DAILY Vitamin B12 (Cyanocobalamin (Vitamin B-12)) 2,500 Mcg Tab.chew 1,000 Mcg PO DAILY Vitamin D3 (Cholecalciferol (Vitamin D3)) 50 Mcg (2000 Unit) Tablet 50 Mcg PO DAILY Fish Oil Conc 1,000 mg Softgel ([place]-3 Fatty Acids/Fish Oil) 300 Mg-1,000 Mg Capsule 1 Each PO DAILY Trimethoprim 100 Mg Tablet 100 Mg PO DAILY Instructions to patient/family Please see electronic discharge instructions given to patient. Clinical Quality Measures DVT/VTE Risk/Contraindication: Contraindications-Pharm: Other *list below* Other: anemia ETHEL ARANGO DO Dec 01, 2022 10:08
[2022-12-01 10:10] LABS: BASOPHILS # (AUTO) 0.1 10^3/uL (0.0-0.1); BASOPHILS % (AUTO) 2 % (0-10); EOSINOPHILS # (AUTO) 0.3 10^3/uL (0.0-0.3); EOSINOPHILS % (AUTO) 4 % (0-10); HEMATOCRIT 27 % (35-52); HEMOGLOBIN 8.4 g/dL (11.5-16.0); LYMPHOCYTES # (AUTO) 0.8 10^3/uL (1.0-4.0); LYMPHOCYTES % (AUTO) 11 % (12-44); MEAN CORPUSCULAR HEMOGLOBIN 19 pg (25-34); MEAN CORPUSCULAR HGB CONC 31 g/dL (32-36); MEAN CORPUSCULAR VOLUME 62 fL (80-99); MEAN PLATELET VOLUME 9.4 fL (9.0-12.2); MONOCYTES # (AUTO) 0.5 10^3/uL (0.0-1.0); MONOCYTES % (AUTO) 7 % (0-12); NEUTROPHILS # (AUTO) 5.8 10^3/uL (1.8-7.8); NEUTROPHILS % (AUTO) 77 % (42-75); PLATELET COUNT 551 10^3/uL (130-400); WHITE BLOOD COUNT 7.5 10^3/uL (4.3-11.0)
[2022-12-01 10:32] LABS: ALBUMIN 3.5 GM/DL (3.2-4.5); BILIRUBIN,TOTAL 0.5 MG/DL (0.1-1.0); CALCIUM 9.6 MG/DL (8.5-10.1); CREATININE SERUM 1.15 MG/DL (0.60-1.30); POTASSIUM 3.7 MMOL/L (3.6-5.0); TOTAL PROTEIN 5.7 GM/DL (6.4-8.2)
[2022-12-01 11:42] VITALS: BP 171/70
--- NOTE | 2022-12-01 11:52 | Physical Therapy Evaluation ---
PT Evaluation-General Medical Diagnosis Admission Date Nov 30, 2022 at 10:51 Medical Diagnosis: anemia Onset Date: Nov 30, 2022 Therapy Diagnosis Therapy Diagnosis: limited mobility Height/Weight Height (Feet): 5 Height (Inches): 2.00 Weight (Pounds): 190 Precautions Precautions/Isolations: Fall Prevention, Standard Precautions Weight Bear Status Full Weight Bearing Full Weight Bearing Referral Physician: Angeles Rand DO Reason for Referral: Evaluation/Treatment Medical History Pertinent Medical History: Atrial Fib, Arthritis, CVA, DM, GERD Current History Admit from [facility] due to falls and anemia. Reviewed History: Yes Social History Home: Assisted Living Prior Prior Level of Function SCALE: Activities may be completed with or without assistive devices. 9-Dlszfkrfpx-yuyvthg completes the activity by him/herself with no assistance from a helper. 5-Set-up or Clean-up Assistance-helper sets up or cleans up; patient completes activity. [place] assists only prior to or following the activity. 4-Supervision or Touching Assistance-helper provides verbal cues and/or touching/steadying and/or contact guard assistance as patient completes activity. Assistance may be provided throughout the activity or intermittently. 3-Partial/Moderate Assistance-helper does LESS THAN HALF the effort. [place] lifts, holds or supports trunk or limbs, but provides less than half the effort. 2-Substantial/Maximal Assistance-helper does MORE THAN HALF the effort. [place] lifts or holds trunk or limbs and provides more than half the effort. 5-Moarhsjbi-synnge does ALL the effort. Patient does none of the effort to complete the activity. Or, the assistance of 2 or more helpers is required for the patient to complete the activity. If activity was not attempted, code reason: 7-Patient Refused. 9-Not Applicable-not attempted and the patient did not perform the activity before the current illness, exacerbation or injury. 10-Not Attempted due to Environmental Limitations-(lack of equipment, weather restraints, etc.). 88-Not Attempted due to Medical Conditions or Safety Concerns. Bed Mobility: 4 Transfers (B,C,W/C): 4 Gait: 4 Stairs: 9 Indoor Mobility (Ambulation): Needed Some Help Stairs: Not Applicalbe Prior Devices Use: Walker Prior Device Use: walker in facility Pt reported limited ambulation within the [facility]. PT Evaluation-Current Subjective Pt is alert but mildly confused. Pain Numeric Pain Scale: 0-No Pain Pt/Family Goals return to [facility] Objective Patient Orientation: Person, Place, Time, Situation ROM/Strength ROM Upper Extremities WFL ROM Lower Extremities WFL Strength Upper Extremities WFL Strength Lower Extremities WFL Neuromuscular (Tone, Coordination, Reflexes) intact Sensory Vision: Wears Glasses Hearing: Functional Hand Dominance: Left Sensation Right Upper Extremit: Intact Sensation Left Upper Extremity: Intact Sensation Right Lower Extremit: Intact Sensation Left Lower Extremity: Intact Transfers Roll Left to Right (QC): 3 Sit to Lying (QC): 3 Lying to Sitting/Side of Bed(Q: 3 Sit to Stand (QC): 3 Chair/Wus-al-Iweue Xfer(QC): 3 Gait Does the Patient Walk?: Yes Mode of Locomotion: Walk Anticipated Mode of Locomotion: Walk Walk 10 feet (QC): 4 Walk 50 ft with 2 Turns(QC): 88 Walk 150 ft (QC): 88 Walking 10ft/uneven surface-QC: 88 Distance: 30ft Gait Assistive Device: FWW Comments/Gait Description Pt reports that she has been up with nursing to use the restroom. She was stable throughout transfer and gait. Wheelchair Training Does the Pt Use a Wheelchair?: No Balance Sitting Static: Good Sitting Dynamic: Good Standing Static: Good Standing Dynamic: Good Assessment/Needs Pt has mild confusion, but was very capable during bed mobility, transfer, and gait. Pt displayed good posture during gait and was stable during gait and turns. Rehab Potential: Good PT Waiter/Waitress Room Service Goals Waiter/Waitress Room Service Goals PT [facility] Goals Time Frame: Dec 15, 2022 Roll Left & Right (QC): 6 Sit to Lying (QC): 6 Lying-Sitting on Side/Bed(QC): 6 Sit to Stand (QC): 6 Chair/Bxz-mb-Jmuwq Xfer(QC): 6 Toilet Transfer (QC): 6 Car Transfer (QC): 6 Does the Patient Walk: Yes Walk 10 feet (QC): 6 Walk 50ft with 2 Turns (QC): 6 Walk 150 ft (QC): 6 Walking 10ft on Uneven Surface: 6 Does the Pt use WC or Scooter?: No Type: N/A Type: N/A PT Plan Problem List Problem List: Activity Tolerance, Functional Strength, Safety, Balance, Gait, Transfer, Bed Mobility Treatment/Plan Treatment Plan: Continue Plan of Care Treatment Plan: Bed Mobility, Functional Activity Marie, Functional Strength, Gait, Safety, Therapeutic Exercise, Transfers Treatment Duration: Dec 15, 2022 Frequency: 5 times per week Estimated Hrs Per Day: .25 hour per day Patient and/or Family Agrees t: Yes Time Time In: 929 Time Out: 944 DATE: Dec 01, 2022 Total Billed Treatment Time: 15 Total Billed Treatment 1, evlowc 15 MARGAUX GARCIA PT Dec 01, 2022 11:52
[2022-12-01 12:50] VITALS: BP 171/70
== END 2022-12-01 12:49 | disposition home or self-care (01) ==
LOC: 4TH 10:51 → UNDODISOB 18:00
PROVIDERS: ADMIT Internal Medicine; ATTEND Internal Medicine
DX: D50.9 Iron deficiency anemia, unspecified (principal); R42 Dizziness and giddiness; I10 Essential (primary) hypertension; E78.5 Hyperlipidemia, unspecified; K21.9 Gastro-esophageal reflux disease without esophagitis; G62.9 Polyneuropathy, unspecified; R29.6 Repeated falls; F03.90 Unspecified dementia, unspecified severity, without behavioral disturbance, psychotic disturbance, mood disturbance, and anxiety
CPT/HCPCS: 36410; 36430; 76937; 80053 ×2; 82607; 82728; 83540; 83550; 85025 ×2; 85027; 85045; 85610; 85730; 86850; 86900; 86901; 86920; 96361 ×2; 96372; 96374; 96375; 96376; 97161; C1751; G0378; G0379; P9016; 36415

== ENCOUNTER 2023-01-09 05:42 | Outpatient (CLI) | payer MEDICARE ==
[~2023-01-09] VITALS: Ht 154.9 cm; Wt 61.9 kg
[~2023-01-09 05:42] MED LIST changes: +ACET-93 PO; +AMLO-250 PO; +IRON150C3 PO; +PANT40TA2 PO; +SERT-413 PO
[2023-01-16] MEDS ORDERED: ASPI-1238 PO (14:10)
[2023-01-16] MEDS ORDERED: HYDR-3584 PO (14:10)
== END 2023-01-16 14:12 | disposition home or self-care (01) ==
LOC: PREOP 05:42
PROVIDERS: ATTEND Surgery
DX: Z01.818 Encounter for other preprocedural examination (principal)

== ENCOUNTER 2023-01-22 07:59 | Day surgery (SDC) | payer MEDICARE ==
[~2023-01-22] VITALS: Ht 154.9 cm; Wt 61.9 kg
[~2023-01-22 07:59] MED LIST changes: +ASPI-1238 PO; +HYDR-3584 PO
[2023-01-22] MEDS ORDERED: LACTATED RINGERS 1,000 ML 1,000 ML IV STA (08:00)
[2023-01-22 08:29] VITALS: BP 156/66
--- NOTE | 2023-01-22 08:59 | Progress Note-Pre Operative ---
Pre-Operative Progress Note Date H&P Reviewed: Jan 22, 2023 Time H&P Reviewed: 09:00 History & Physical: H&P Reviewed Pre-Operative Diagnosis: Irone deficiency anemia RAY SOLARES DO Jan 22, 2023 08:59
[2023-01-22] MEDS: HURRICAINE EXT TUBE (BENZOCAINE) XX PRN ×2 (09:04→09:34)
[2023-01-22 10:05] VITALS: BP 135/64
[2023-01-22] MEDS ORDERED: ESMOLOL INJ 100 MG/10 ML VIAL ONE (10:05)
--- NOTE | 2023-01-22 10:06 | Progress Note-Post Operative ---
Post-Operative Progess Note Surgeon (s)/Skidder (s) Surgeon RAY SOLARES DO [place]: n/a Pre-Operative Diagnosis Irone deficiency anemia Post-Operative Diagnosis Gastritis, diverticulosis Procedure & Operative Findings Date of Procedure 01/22/23 Procedure Performed/Findings EGD with biopsies, colonoscopy Anesthesia Type per COAL CUTTER Estimated Blood Loss Estimated blood loss (mL): none Specimens/Packing Specimens Removed Antrum, GE junction RAY SOLARES DO Jan 22, 2023 10:06
--- NOTE | 2023-01-22 10:07 | Discharge Inst-Simple/Standard ---
Discharge Inst-Standard Patient Instructions/Follow Up Plan of Care/Instructions/FU: Severino 2 weeks Activity as Tolerated: Yes Discharge Diet: Regular Diet (High Fiber) RAY SOLARES DO Jan 22, 2023 10:07
[2023-01-22 10:45] VITALS: BP 135/64
--- NOTE | 2023-01-22 13:35 | Anesthesia-General Post-Op ---
MAC Patient Condition Mental Status/LOC: Same as Preop Cardiovascular: Satisfactory Nausea/Vomiting: Absent Respiratory: Satisfactory Pain: Controlled Complications: Absent Post Op Complications Complications None Follow Up Care/Instructions Patient Instructions None needed. Anesthesiology Discharge Order Discharge Order Patient was doing well this morning after the procedure with no complaints, stable vital signs, no apparent adverse anesthesia problems. No complications reported per nursing. ANASTACIA FROST DO Jan 22, 2023 13:35
--- NOTE | 2023-01-22 16:19 | OPERATIVE REPORT ---
DATE OF SERVICE: 01/22/2023 PREOPERATIVE DIAGNOSIS: Iron deficiency anemia. POSTOPERATIVE DIAGNOSES: Gastritis, diverticulosis. PROCEDURES: EGD with biopsies, colonoscopy. SURGEON: Ray Haq DO ANESTHESIA: Per TECHNOLOGY ADVISOR. ESTIMATED BLOOD LOSS: None. COMPLICATIONS: None. SPECIMENS: Antrum and GE junction. INDICATIONS: The patient is an 82-year-old female with iron deficiency anemia. She understands risks and benefits of procedure and wished to proceed. Consent was signed in chart. DESCRIPTION OF PROCEDURE: The patient was taken to endoscopy suite, placed in left lateral recumbent position. Timeout was performed. Scope was inserted in the mouth, down the esophagus, stomach, into the duodenum without difficulty. No polyps, masses or ulcerations in the duodenum. Scope was slowly retracted back into the stomach. Gastritis appearance. Biopsy of the antrum was obtained. Scope was retroflexed noting no other pathology. Scope was returned to its normal position, slowly withdrawn until distal esophagus. Biopsy of GE junction was obtained. Scope was slowly retracted back until completely removed, noting no other pathology. Digital rectal exam was performed. No palpable polyps, masses or ulcerations. Scope was inserted in the rectum and advanced all the way to the cecum with minimal difficulty. Prep was adequate with irrigation and suction. Scope was then slowly retracted back. No polyps, masses or ulcerations in the cecum, ascending, transverse, descending and sigmoid colon. Significant amount diverticulosis present, particularly in the left colon. Once in the rectum, scope was retroflexed, noting no other pathology. The scope was returned to its normal position, slowly withdrawn until completely removed. The patient tolerated the procedure well without any complications, taken to recovery room in stable condition. RECOMMENDATIONS: The patient will continue on current medications. Follow labs. We would consider capsule endoscopy for further evaluation of the small bowel. Job ID: [id number] DocumentID: [id number] Dictated Date: 01/22/2023 10:07:07 Bradley Linebacker Crewmember Date: 01/22/2023 16:17:00 Dictated By: RAY HAQ DO
== END 2023-01-22 10:45 | disposition home or self-care (01) ==
LOC: ENDO 07:59
PROVIDERS: ATTEND Surgery
DX: D50.9 Iron deficiency anemia, unspecified (principal); K29.50 Unspecified chronic gastritis without bleeding; K57.30 Diverticulosis of large intestine without perforation or abscess without bleeding; K31.89 Other diseases of stomach and duodenum; F17.210 Nicotine dependence, cigarettes, uncomplicated; Z66 Do not resuscitate